=== PATIENT | female | born 1970 | race Caucasian/White ===

== ENCOUNTER 2025-04-25 19:12 | Emergency (ER) | payer MEDICARE, MEDICAID, SELFPAY ==
[2025-04-25 19:37] VITALS: BP 147/100; PULSE 93; RESP 18; TEMP 37; O2SAT 100; BMI 27.9
[2025-04-25 19:47] LABS: Coronavirus 19, PCR Not Detected (NotDetected); Influenza A, PCR Not Detected (NotDetected); Influenza B, PCR Not Detected (NotDetected)
--- NOTE | 2025-04-25 20:14 | XR_ITS ---
PROCEDURE INFORMATION: Exam: XR Chest Exam date and time: 04/25/2025 8:37 PM Age: 54 years old Clinical indication: Shortness of breath and other: Chills; Additional info: SOA, chills TECHNIQUE: Imaging protocol: Radiologic exam of the chest. Views: 1 view. COMPARISON: No relevant prior studies available. FINDINGS: Lungs: Unremarkable. No consolidation. Pleural spaces: Unremarkable. No pleural effusion. No pneumothorax. Heart/Mediastinum: Unremarkable. No cardiomegaly. Bones/joints: Unremarkable. IMPRESSION: No acute findings.
--- NOTE | 2025-04-25 20:16 | ED_ITS ---
Discharge Plan Disposition Patient Disposition: Home, Self-Care Condition: Good Prescriptions Prescriptions: New promethazine 25 mg tablet 25 mg PO TID PRN (Reason: nausea and vomiting) Qty: 14 0RF Referrals Follow up/Referrals: Quan Philip [Primary Care Provider, Medical] - See instructions Activity Restrictions/Add. Instructions Additional Instructions/Restrictions: If you develop shortness of breath, wheezing, production of phlegm, fevers, intractable abdominal pain, or intractable nausea and vomiting please return to the emergency department. Print Language Print Language: Djib[place]ian Discharge ED Provider: Micheal Black General Adult HPI <ESTELA Liu - Last Filed: 04/25/25 22:06> General Chief complaint: Upper Respiratory Infection Stated complaint: Chills; Emesis; Possibly Dehydrated Time Seen by Provider: 04/25/25 20:02 Mode of Arrival: Ambulatory Source of Information: Patient Description of Symptoms (Recalled from ER Triage Doc. by RN): Pt presents for evaluation of multiple complaints. Pt states she has had chills, generalized body aches, congestion x 3 days History of Present Illness HPI narrative: 54-year-old female presents to the emergency department with a 2 to 3-day history of chills, subjective fever, no recorded Tmax, shortness of air, nausea and vomiting poor p.o. intake, malaise and bodyaches, no known sick contact being another person who had COVID . Denies any overt cough congestion sore throat, denies any headache lightheadedness, denies any upper abdominal pain, denies any constipation diarrhea melena hematochezia hematemesis or hemoptysis, no urinary symptomatology, patient is a former smoker, denies any alcohol or drug use, other past medical history is consistent with Chiari malformation, slated to have surgery for this in 10 days, hypertension, status post right mastectomy for breast cancer, status post chemo therapy and radiation therapy, remission, neuropathy. Initial triage vitals are unremarkable. Please note that above description of symptoms, in this electronic medical record under categorization of recalled from ER triage doctor by RN are reflective of an initial nursing assessment, however, is not reflective of my full history and physical exam that was personally taken and clarified. Consequentially, this preceding description of symptoms, which may include the patient's categorized chief complaint in the EMR, do not reflect my personal clinical impression, and the ultimate description of history of present illness and patient stated complaints should be deferred to this section of the note. Unless stated otherwise or congruent with this section of the note, additional signs, symptoms, or incongruence should be interpreted as inaccurate with my clinical impression. Onset (ago): day(s) Related Data Previous Rx's ?Medication ?Instructions ?Recorded promethazine 25 mg tablet 25 mg PO TID PRN nausea and 04/25/25 vomiting #14 tabs Allergies Allergy/AdvReac Type Severity Reaction Status Date / Time tramadol Allergy Severe S-SWELLS-OR Verified 04/25/25 20:19 AL/THROAT amoxicillin Allergy Intermediate I-RASH Verified 04/25/25 20:19 aspirin Allergy Intermediate I-HIVES Verified 04/25/25 20:19 codeine Allergy Intermediate I-ITCHING Verified 04/25/25 20:19 acetaminophen (From ULTRACET) Allergy Unknown Hives Verified 04/25/25 20:19 ondansetron Allergy Hives Verified 04/25/25 20:23 PFSH <ESTELA Liu - Last Filed: 04/25/25 22:06> COUNT INCLUDES THE [facility] Disclaimer: The information contained in this section may have been updated after the patient was seen, as this information can be updated by other users. Social History (Updated 04/25/25 @ 22:06 by ESTELA Liu) Smoking Status: Never smoker alcohol intake: never current occupational status: other Travel in the last 8 weeks?: None Have you lived/traveled outside US in past 30 days?: No Contact w/someone who lives/traveled outside US past 30 days?: No Exposure to someone with infectious disease in past 14 days?: No Do you have a fever (greater than 100.4 F or 38 C)?: No Have you tested positive for COVID-19?: No Exposed to someone with COVID-19 in past 14 days?: No Do you have a sore throat?: No Do you have a cough?: No Do you have any weakness?: No Do you have any diarrhea?: No Are you experiencing any unusual bleeding?: No Do you have any muscle aches/pain?: No Do you have any abdominal pain?: No Are you experiencing loss of taste or smell?: No <ESTELA Liu - Last Filed: 04/25/25 22:06> ROS Obtained: Yes All systems reviewed & no additional complaints except as documented Physical Exam <ESTELA Liu - Last Filed: 04/25/25 22:06> General General appearance: alert and in no apparent distress Head Head exam: atraumatic and normocephalic Eye Eye exam: Present PERRL and EOMI ENT ENT exam: Present normal oropharynx and mucous membranes moist Neck Neck exam: Present normal inspection Chest Chest inspection: Present normal inspection and symmetric chest wall rise Respiratory Respiratory exam: Present normal lung sounds bilaterally; Absent respiratory distress, wheezes or stridor Cardiovascular Cardiovascular exam: Present regular rate and normal rhythm Abdominal Exam Abdominal exam: Present soft; Absent tenderness, guarding, rebound or rigidity Extremities Exam Extremities exam: Present normal inspection Neurological Exam Neurological exam: Present alert and oriented X3 Psychiatric Psychiatric exam: Present normal affect Skin Skin exam: Present warm and dry Medical Decision Making <ESTELA Liu - Last Filed: 04/25/25 22:06> Medical Records Medical records reviewed: Yes I reviewed the patient's medical records. Screening: Per USPSTF and CDC recommendations, given the prevalence of disease in our region, it is our hospital?s policy to screen for HIV and viral Hepatitis for all patients aged 18 and over and those with ongoing risk factors. Farshad Inquiry Pt receiving controlled substance: No Farshad was queried for this patient: No Vital Signs: 04/25/25 19:37 Temperature 98.6 F Temperature Source Temporal Artery Scan Pulse Rate [Right] 93 H Respiratory Rate 18 Blood Pressure [Right Arm] 147/100 H Blood Pressure Mean [Right Arm] 115 Blood Pressure Source [Right Arm] Automatic Cuff Blood Pressure Position [Right Arm] Sitting 02 Sat by Pulse Oximetry 100 Oxygen Delivery Method Room Air Lab Data Lab results reviewed: Yes I reviewed the patient's lab results. Lab Results 04/25/25 19:39: SARS-CoV-2 (PCR) Not detected, Influenza A Untype (PCR) Not detected, Influenza Type B (PCR) Not detected 04/25/25 20:33: WBC 11.4 H, RBC 4.64, Hgb 14.1, Hct 40.2, MCV 86.6, MCH 30.4, MCHC 35.1, RDW 11.9, Plt Count 367, MPV 10.7 H, Neut % (Auto) 67.4, Lymph % (Auto) 23.7, [place] % (Auto) 7.3, Eos % (Auto) 0.7, Baso % (Auto) 0.6, Neut # (Auto) 7.7, Lymph # (Auto) 2.7, [place] # (Auto) 0.8, Eos # (Auto) 0.1, Baso # (Auto) 0.1, Sodium 137, Potassium 3.1 L, Chloride 94 L, Carbon Dioxide 27, Anion Gap 19.1 H, BUN 17, Creatinine 0.90, Estimated Creat Clear 86, Estimated GFR 65, Est GFR ( Amer) 79, Glucose 120 H, Calcium 10.1, Magnesium 2.0, Total Bilirubin 0.9, AST 23, ALT 16, Alkaline Phosphatase 117, Total Creatine Kinase 83, Total Protein 8.2, Albumin 4.9, Globulin 3.3 H, Albumin/Globulin Ratio 1.5 04/25/25 20:33 04/25/25 20:33 Orders (Tests/Meds): ED MEDICATIONS Discontinued Medications Generic Name Dose Route Start Last Admin Trade Name Freq PRN Reason Stop Dose Admin Lactated Ringer's 1,000 mls @ 999 mls/hr 04/25/25 20:14 04/25/25 21:50 Lactated Ringer's 1000 Ml Bag IV 04/25/25 21:14 Infused .Q1H1M ONE Infusion Potassium Chloride 60 meq 04/25/25 20:58 04/25/25 21:02 Potassium Chloride 20meq Tab PO 04/25/25 20:59 60 meq ONCE ONE Administration Promethazine HCl 12.5 mg 04/25/25 20:26 04/25/25 20:38 Promethazine Hcl 25mg/Ml 1ml Vial IV 04/25/25 20:27 12.5 mg ONCE ONE Administration Sodium Chloride 25 ml 04/25/25 20:26 04/25/25 20:54 Sodium Chloride 0.9% 25ml Bag IV 04/25/25 20:27 25 ml ONCE ONE Administration ORDERS Category Date Time Status XR chest portable Stat Exams 04/25/25 20:14 Completed Complete Blood Count Auto Diff Stat Lab 04/25/25 20:33 Completed Comprehensive Metabolic Panel Stat Lab 04/25/25 20:33 Completed Creatine Kinase Stat Lab 04/25/25 20:33 Completed Magnesium Stat Lab 04/25/25 20:33 Completed Rapid PCR Covid and Flu A/B Stat Lab 04/25/25 19:39 Completed Medical Decision Narrative: 54-year-old female presents the emergency department multiple complaints, see HPI for more details, differential diagnose include but not limited to cardiac arrhythmia, electrolyte disturbance, gastroenteritis, colitis, viral bronchitis, pneumonia, acute URI among others Will obtain basic laboratory studies, EKG, lipase, magnesium, rapid PCR COVID and flu, will give 1 L LR IV, and give 12.5 mg IV Phenergan for nausea and vomiting I reviewed the patient's EKG, along with the attending physician at approximately 2024, NSR at 97 bpm TX interval 200 ms, QT interval within normal limits, there is no STEMI. COVID-19 via PCR is negative, influenza via PCR negative CBC notable for mild leukocytosis 11.4 otherwise unremarkable CMP is noted for mild hypokalemia 3.1 will give 60 mill equivalents given p.o. potassium for placement. Patient has otherwise unremarkable CMP. Of note reexamination of the patient at approximately 9:55 PM, was resting comfortably in bed, will attempt p.o. challenge. I discussed this patient's case with the attending physician Dr. Black at shift change he will be assuming the patient's care/workup, disposition is pending radiology report, p.o. challenge and reassessment. <Micheal Black, - Last Filed: 04/25/25 23:15> Vital Signs: 04/25/25 19:37 Temperature 98.6 F Temperature Source Temporal Artery Scan Pulse Rate [Right] 93 H Respiratory Rate 18 Blood Pressure [Right Arm] 147/100 H Blood Pressure Mean [Right Arm] 115 Blood Pressure Source [Right Arm] Automatic Cuff Blood Pressure Position [Right Arm] Sitting 02 Sat by Pulse Oximetry 100 Oxygen Delivery Method Room Air Lab Data Lab Results 04/25/25 19:39: SARS-CoV-2 (PCR) Not detected, Influenza A Untype (PCR) Not detected, Influenza Type B (PCR) Not detected 04/25/25 20:33: WBC 11.4 H, RBC 4.64, Hgb 14.1, Hct 40.2, MCV 86.6, MCH 30.4, MCHC 35.1, RDW 11.9, Plt Count 367, MPV 10.7 H, Neut % (Auto) 67.4, Lymph % (Auto) 23.7, [place] % (Auto) 7.3, Eos % (Auto) 0.7, Baso % (Auto) 0.6, Neut # (Auto) 7.7, Lymph # (Auto) 2.7, [place] # (Auto) 0.8, Eos # (Auto) 0.1, Baso # (Auto) 0.1, Sodium 137, Potassium 3.1 L, Chloride 94 L, Carbon Dioxide 27, Anion Gap 19.1 H, BUN 17, Creatinine 0.90, Estimated Creat Clear 86, Estimated GFR 65, Est GFR ( Amer) 79, Glucose 120 H, Calcium 10.1, Magnesium 2.0, Total Bilirubin 0.9, AST 23, ALT 16, Alkaline Phosphatase 117, Total Creatine Kinase 83, Total Protein 8.2, Albumin 4.9, Globulin 3.3 H, Albumin/Globulin Ratio 1.5 Orders (Tests/Meds): ED MEDICATIONS Discontinued Medications Generic Name Dose Route Start Last Admin Trade Name Freq PRN Reason Stop Dose Admin Lactated Ringer's 1,000 mls @ 999 mls/hr 04/25/25 20:14 04/25/25 21:50 Lactated Ringer's 1000 Ml Bag IV 04/25/25 21:14 Infused .Q1H1M ONE Infusion Potassium Chloride 60 meq 04/25/25 20:58 04/25/25 21:02 Potassium Chloride 20meq Tab PO 04/25/25 20:59 60 meq ONCE ONE Administration Promethazine HCl 12.5 mg 04/25/25 20:26 04/25/25 20:38 Promethazine Hcl 25mg/Ml 1ml Vial IV 04/25/25 20:27 12.5 mg ONCE ONE Administration Sodium Chloride 25 ml 04/25/25 20:26 04/25/25 20:54 Sodium Chloride 0.9% 25ml Bag IV 04/25/25 20:27 25 ml ONCE ONE Administration ORDERS Category Date Time Status XR chest portable Stat Exams 04/25/25 20:14 Completed Complete Blood Count Auto Diff Stat Lab 04/25/25 20:33 Completed Comprehensive Metabolic Panel Stat Lab 04/25/25 20:33 Completed Creatine Kinase Stat Lab 04/25/25 20:33 Completed Magnesium Stat Lab 04/25/25 20:33 Completed Rapid PCR Covid and Flu A/B Stat Lab 10/10/25 19:39 Completed Medical Decision Narrative: 54-year-old female presents the emergency department multiple complaints, see HPI for more details, differential diagnose include but not limited to cardiac arrhythmia, electrolyte disturbance, gastroenteritis, colitis, viral bronchitis, pneumonia, acute URI among others Will obtain basic laboratory studies, EKG, lipase, magnesium, rapid PCR COVID and flu, will give 1 L LR IV, and give 12.5 mg IV Phenergan for nausea and vomiting I reviewed the patient's EKG, along with the attending physician at approximately 2024, NSR at 97 bpm TX interval 200 ms, QT interval within normal limits, there is no STEMI. COVID-19 via PCR is negative, influenza via PCR negative CBC notable for mild leukocytosis 11.4 otherwise unremarkable CMP is noted for mild hypokalemia 3.1 will give 60 mill equivalents given p.o. potassium for placement. Patient has otherwise unremarkable CMP. Of note reexamination of the patient at approximately 9:55 PM, was resting comfortably in bed, will attempt p.o. challenge. I discussed this patient's case with the attending physician Dr. Black at shift change he will be assuming the patient's care/workup, disposition is pending radiology report, p.o. challenge and reassessment. Transfer of care I agree with BEATRIZ assessment and plan above. I have independently evaluated the patient and obtained collateral history from the patient. She tells me that she has had rhinorrhea and congestion for the last couple of days. She states that today she began developing nausea and vomiting. No associated abdominal pain. She has not had any production of phlegm or fevers. She has had somewhat of an intermittent cough. On my physical examination she does not have any wheezes, rales, rhonchi, or crackles. No stridor. Her abdomen is soft and nontender to palpation. Heart sounds are normal to auscultation bilaterally. She has no lower extremity erythema or edema. We proceeded with hematologic labs as well as viral swabs. We also obtained an EKG. Please see interpretation of EKG above. Labs were interpreted by me and demonstrates a leukocytosis of 11.4 which can be seen in the setting of a viral illness. She is also hypokalemic and we replaced this with potassium chloride. No acute kidney injury. Viral swabs are negative. On repeat assessment of the patient after being treated with 1 L of lactated Ringer's and promethazine, she was still experiencing some nausea so we treated her with Pepcid. She has now been able to tolerate oral intake of both solids and liquids. We will send her home with a prescription for Zofran to take for continued nausea at home. I have given return precautions in the event that she develops abdominal pain, tractable nausea and vomiting, signs of dehydration, or fevers. At this time all questions have been answered and all parties are agreeable with the decision to discharge home. Critical Care <ESTELA Liu - Last Filed: 04/25/25 22:06> Critical Care Time Critical Care Time: No
--- NOTE | 2025-04-25 20:25 | ECG_ITS ---
APPROVED REPORT Exam: Resting ECG HR:97 bpm ECG Measurements Heart Rate 97 AXES OR 200 P 69 QRSd 85 QRS 49 QT 340 T 212 QTc 395 Conclusion Sinus rhythm Normal axis Normal intervals No STEMI Probable LVH Electronically signed by : Micheal Black, 04/26/2025 01:33:39
[2025-04-25] MEDS: LACTATED RINGERS 1000ML 1,000 ML 999 ML IV (20:34)
[2025-04-25] MEDS: PROMETHAZINE HCL 25MG/ML 1ML VIAL 12.5 MG IV (20:38)
[2025-04-25 20:41] LABS: Hematocrit 40.2 % (37.0-47.0); Hemoglobin 14.1 g/dL (12.2-16.2); Immature Granulocytes % 0.3 %; Mean Corpuscular HGB Conc 35.1 g/dL (31.8-35.4); Mean Corpuscular Hemoglobin 30.4 pg (27.0-31.2); Mean Corpuscular Volume 86.6 fl (81-99); Nucleated Red Blood Cells % 0 %; Platelet Count 367 K/mm3 (142-424); Red Blood Count 4.64 M/mm3 (4.20-5.40); Red Cell Distribution Width-SD 37.5 fL; White Blood Count 11.4 K/mm3 (4.8-10.8)
[2025-04-25 20:53] LABS: Alanine Aminotransferase 16 U/L (12-78); Albumin Level 4.9 g/dl (3.5-5.0); Albumin/Globulin Ratio 1.5 (1.1-1.8); Alkaline Phosphatase 117 U/L (38-126); Anion Gap 19.1 mEq/L (5-15); Aspartate Amino Transferase 23 U/L (14-36); Bilirubin,Total 0.9 mg/dl (0.2-1.3); Blood Urea Nitrogen 17 mg/dl (7-17); Calcium 10.1 mg/dl (8.4-10.2); Carbon Dioxide 27 mmol/L (22.0-30.0); Chloride 94 mmol/L (98-107); Creatine Kinase 83 U/L (30-135); Creatinine Clearance Estimated 86 mL/min (50-200); Creatinine,Serum 0.90 mg/dl (0.52-1.04); Estimated Glomerular Filt Rate 65 ml/min (>60); GFR (African American) 79 ML/MIN (>60); Globulin 3.3 g/dL (1.3-3.2); Glucose 120 mg/dl (74-100); Magnesium 2.0 mg/dl (1.6-2.3); Potassium 3.1 mmoL/L (3.5-5.1); Sodium 137 mmol/L (136-145); Total Protein,Serum 8.2 g/dl (6.3-8.2)
[2025-04-25] MEDS: SODIUM CHLORIDE 0.9% 25ML BAG 25 ML IV (20:54)
[2025-04-25] MEDS: POTASSIUM CHLORIDE 20MEQ TAB 60 MEQ PO (21:02)
[2025-04-25 23:19] VITALS: BP 138/78; PULSE 71; RESP 19; TEMP 36.6; O2SAT 96
[2025-04-25] MEDS: FAMOTIDINE 20MG/2ML VIAL 20 MG IV (23:21)
== END 2025-04-25 23:28 | disposition home or self-care (01) ==
PROVIDERS: Physician Assistant; Emergency Provider Student in an Organized Health Care Education/Training Program; PCP Family Medicine
DX: R11.2 Nausea with vomiting, unspecified (principal); E87.6 Hypokalemia
CPT/HCPCS: 71045; 80053; 82550; 83735; 85025; 87636; 93005; 96361; 96374; 96375; 99284; J1308; J2550; J7120

== ENCOUNTER 2025-07-03 09:32 | Emergency (ER) | payer MEDICARE, MEDICAID, SELFPAY ==
--- OUTSIDE RECORDS SUMMARY | 2025-02-27 08:30 | XMS_ITS ---
Author Organization [facility] Address [address] [place] [address] Care Team Providers Care Public Relations Intern Name Role Phone Quan Philip DO Primary Care Provider Unavaila jorge Barbosa MRS. Del Castillo Unavailable Encounters Encounter Location Date Provider Diagnosis [facility] [address] [place] [address] 02/27/2025 Magdalene Barbosa Plan Of Treatment Next Appt Details Provider Name:Cornell avendano, 07/07/2025 11:45:00 AM, [address], [place], [address], Progress Notes * Axel PATELOB:1970 (55 yo F)Acc No.[id number]:02/27/2025 Patient: Ifeoma Pepper Provider: Mulugeta Barbosa NP :1970 A ge:54 Y S ex:Female Date:02/27/2025 Phone: Address:[facility] Pcp:Quan Philip DO Structured Data:Referral Rachelle rce : Physician * Electronic signature of MRS. Del Castillo PAMELA Barbosa on 07/03/2025 at 10:11 AM EST Sign off status: Pending * Provider: Mulugeta Barbosa NP Date: 0 02/27/2025 Generated for Manny ng/Kaig/eTransmitting on: 1 09/03/2024 10:11 AM EST
--- OUTSIDE RECORDS SUMMARY | 2025-03-08 04:00 | XMS_ITS ---
Author Organization [facility] Address [address] [place] [address] [address] [place] [address] Care Team Providers Care Wax Pattern Repairer Name Role Phone Tamera Quan Primary Care Provider Unavaila ble Migration, Provider Unavailable Unavailable REASON FOR VISIT EMR-Luis A Encounters Encounter Location Date Provider Diagnosis [facility] [address] [facility] [address] [place] [address] 03/08/2025 Provider Migration Plan Of Treatment Next Appt Details Provider Name:Cornell avendano, 07/07/2025 11:45:00 AM, [address] [place], [address], Progress Notes * Axel PATELOB:1970 (55 yo F)Acc No.[id number]:03/08/2025 Patient: Darren Ifeoma FLOYD :1970 A ge:54 Y S ex:Female Phone: Address:[facility] [place], [address] Subjective: * Chief Complaints: * E MR-Luis A * * Date:
--- OUTSIDE RECORDS SUMMARY | 2025-03-09 04:00 | XMS_ITS ---
Author Organization [facility] Address [address] [place] [address] [address] [place] [address] Care Team Providers Care Kindergarten Assistant Name Role Phone Tamera Quan Primary Care Provider Unavaila ble Migration, Provider Unavailable Unavailable REASON FOR VISIT EMR-Luis A Encounters Encounter Location Date Provider Diagnosis [facility] [address] [facility] [address] [place] [address] 03/09/2025 Provider Migration Plan Of Treatment Next Appt Details Provider Name:Cornell avendano, 07/07/2025 11:45:00 AM, [address] [place], [address], Progress Notes * Axel PATELOB:1970 (55 yo F)Acc No.[id number]:03/09/2025 Patient: Darren KAYLASINTIAIfeoma :1970 A ge:54 Y S ex:Female Phone: Address:[facility] [place], [address] Subjective: * Chief Complaints: * E MR-Luis A * * Date:
--- OUTSIDE RECORDS SUMMARY | 2025-04-02 04:00 | XMS_ITS ---
Author Organization [facility] Office Address [address] [place] [address] Care Team Providers Care Transportation Dispatch Manager Name Role Phone Tamera Quan BOYKIN Primary Care Provider [facility] PROVIDERANGELINA Unavailable Unavailable REASON FOR VISIT SURGERY CONSENTED Medications Medication SIG (Take, Route, Frequency, Duration) Notes Start Date End Date Status Azithromycin 250 MG Tablet Oral; Duratio n: 5 Days Not-Taking Azithromycin 250 MG Tablet TAKE 1 TABLET BY MOUTH DAILY FOR 5 DAYS. Oral; Duration: 5 Days Not-Taking Doxycycline Monohydrate 100 MG Capsule TAKE 1 CAPSULE BY MOUTH 2 TIMES DAILY FOR 10 DAYS. Oral; Duration: 10 Days Not-Taking Doxycycline Monohydrate 100 MG Capsule Oral; Duration: 10 Days Not-Taking Gabapentin 300 MG Capsule TAKE 2 CAPSULE S BY MOUTH THREE TIMES DAILY Oral; Duration: 30 Days Not-Taking Lisinopril-hydroCHLOROthiazi de 20-25 MG Tablet Oral; Duration: 90 Days Active Metoprolol Succinate ER 100 MG Tablet Extended Release 24 Hour TAKE 1 TABLET BY MOUTH DAILY. MUST MAKE APPOINTMENT FOR FURTHER REFILLS Oral; Duration: 90 Days Active Omeprazole 40 MG Capsule Delayed Release TAKE 1 CAPSULE BY MOUTH 2 TIMES DAILY. Oral; Duration: 90 Days Active oxyCODONE-Acetaminophen 7.5-325 MG Tablet TAKE 1 TABLET BY MOUTH EVERY 6 HOURS NEEDED FOR CHRONIC PAIN (G89.29). * DNF UNTIL 03-13-25 Oral; Duration: 30 Days Active oxyCODONE-Acetaminophen 7.5-325 MG Tablet Oral; Duration: 30 Days Active Gabapentin 300 MG Capsule Oral; Duration : 30 Days Not-Taking Ibuprofen 800 MG Tablet Oral; Duration: 30 Days Active Ibuprofen 800 MG Tablet TAKE 1 TABLET BY MOUTH EVERY 8 HOURS NEEDED FOR PAIN Oral; Duration: 30 Days Not-Taking Lidocaine 5 % Patch PLACE 1 PATCH ONTO THE SKIN EVERY 12 HOURS, THEN REMOVE FOR 12 HOURS External; Duration: 30 Days Not-Taking Lidocaine 5 % Patch External; Duration: 30 Days Active methylPREDNISolone 4 MG Tablet Therapy Pack TAKE 6 TABLETS ON DAY 1,THEN 5 TABS ON DAY 2,THEN 4 TABS ON DAY 3, 3 TABS ON DAY 4,THEN 2 TABS ON DAY 5 AND 1 TAB ON DAY 6. *TAKE WITH FOOD* Oral; Duration: 6 Days Not-Taking traZODone HCl 50 MG Tablet Oral; Duratio n: 30 Days Active traZODone HCl 50 MG Tablet TAKE 1 TABLET BY MOUTH NIGHTLY. Oral; Duration: 30 Days Active Gabapentin 300 MG Capsule TAKE 2 CAPSULE S BY MOUTH 3 TIMES DAILY. DNF UNTIL 03/22/25 Oral; Duration: 30 Days Active methylPREDNISolone 4 MG Tablet Therapy Pack Oral; Duration: 6 Days Not-Taking Encounters Encounter Location Date Provider Diagnosis [facility] [address] 04/02/2025 [place] PROVIDER Plan Of Treatment Next Appt Details Provider Name:Cornell avendano, 07/07/2025 11:45:00 AM, [address] [place], [address], Progress Notes * Axel PATELOB:1970 (55 yo F)Acc No.[id number]:04/02/2025 Patient: Darren alcantar Ifeoma Provider: Letty CARR PACS INTERFACE :1970 A ge:54 Y S ex:Female Date:04/02/2025 Phone: Address:[address] [place] [id number] Pcp:Quan Philip DO Structured Data:Referral Rachelle rce : Physician Subjective: * Chief Complaints: * S URGERY CONSENTED * Medications: T akingtraZODone HCl 50 MG Tablet Oral traZODone HCl 50 MG Tablet TAKE 1 TABLET BY MOUTH NIGHTLY. Oral Gabapentin 300 MG Capsule TAKE 2 CAPSULES BY MOUTH 3 TIMES DAILY. DNF UNTIL 03/22/25 Oral Ibuprofen 800 MG Tablet Oral Lidocaine 5 % Patch External oxyCODONE-Acetaminophen 7.5-325 MG Tablet TAKE 1 TABLET BY MOUTH EVERY 6 HOURS NEEDED FOR CHRONIC PAIN (G89.29). * DNF UNTIL 03-13-25 Oral oxyCODONE-Acetaminophen 7.5-325 MG Tablet Oral Lisinopril-hydroCHLOROthiazide 20-25 MG Tablet Oral Metoprolol Succinate ER 100 MG Tablet Extended Release 24 Hour TAKE 1 TABLET BY MOUTH DAILY. MUST MAKE APPOINTMENT FOR FURTHER REFILLS Oral Omeprazole 40 MG Capsule Delayed Release TAKE 1 CAPSULE BY MOUTH 2 TIMES DAILY. Oral Taking traZODone HCl 50 MG Tablet Oral Taking traZODone HCl 50 MG Tablet TAKE 1 TABLET BY MOUTH NIGHTLY. Oral Taking Gabapentin 300 MG Capsule TAKE 2 CAPSULES BY MOUTH 3 TIMES DAILY. DNF UNTIL 03/22/25 Oral Taking Ibuprofen 800 MG Tablet Oral Taking Lidocaine 5 % Patch External Taking oxyCODONE-Acetaminophen 7.5-325 MG Tablet TAKE 1 TABLET BY MOUTH EVERY 6 HOURS NEEDED FOR CHRONIC PAIN (G89.29). * DNF UNTIL 03-13-25 Oral Taking oxyCODONE-Acetaminophen 7.5-325 MG Tablet Oral Taking Lisinopril-hydroCHLOROthiazide 20-25 MG Tablet Oral Taking Metoprolol Succinate ER 100 MG Tablet Extended Release 24 Hour TAKE 1 TABLET BY MOUTH DAILY. MUST MAKE APPOINTMENT FOR FURTHER REFILLS Oral Taking Omeprazole 40 MG Capsule Delayed Release TAKE 1 CAPSULE BY MOUTH 2 TIMES DAILY. Oral Not-TakingmethylPREDNISolone 4 MG Tablet Therapy Pack Oral methylPREDNISolone 4 MG Tablet Therapy Pack TAKE 6 TABLETS ON DAY 1,THEN 5 TABS ON DAY 2,THEN 4 TABS ON DAY 3, 3 TABS ON DAY 4,THEN 2 TABS ON DAY 5 AND 1 TAB ON DAY 6. *TAKE WITH FOOD* Oral Gabapentin 300 MG Capsule Oral Ibuprofen 800 MG Tablet TAKE 1 TABLET BY MOUTH EVERY 8 HOURS NEEDED FOR PAIN Oral Lidocaine 5 % Patch PLACE 1 PATCH ONTO THE SKIN EVERY 12 HOURS, THEN REMOVE FOR 12 HOURS External Azithromycin 250 MG Tablet Oral Azithromycin 250 MG Tablet TAKE 1 TABLET BY MOUTH DAILY FOR 5 DAYS. Oral Doxycycline Monohydrate 100 MG Capsule TAKE 1 CAPSULE BY MOUTH 2 TIMES DAILY FOR 10 DAYS. Oral Doxycycline Monohydrate 100 MG Capsule Oral Gabapentin 300 MG Capsule TAKE 2 CAPSULES BY MOUTH THREE TIMES DAILY Oral Not-Taking methylPREDNISolone 4 MG Tablet Therapy Pack Oral Not-Taking methylPREDNISolone 4 MG Tablet Therapy Pack TAKE 6 TABLETS ON DAY 1,THEN 5 TABS ON DAY 2,THEN 4 TABS ON DAY 3, 3 TABS ON DAY 4,THEN 2 TABS ON DAY 5 AND 1 TAB ON DAY 6. *TAKE WITH FOOD* Oral Not-Taking Gabapentin 300 MG Capsule Oral Not-Taking Ibuprofen 800 MG Tablet TAKE 1 TABLET BY MOUTH EVERY 8 HOURS NEEDED FOR PAIN Oral Not- Taking Lidocaine 5 % Patch PLACE 1 PATCH ONTO THE SKIN EVERY 12 HOURS, THEN REMOVE FOR 12 HOURS External Not-Taking Azithromycin 250 MG Tablet Oral Not-Taking Azithromycin 250 MG Tablet TAKE 1 TABLET BY MOUTH DAILY FOR 5 DAYS. Oral Not-Taking Doxycycline Monohydrate 100 MG Capsule TAKE 1 CAPSULE BY MOUTH 2 TIMES DAILY FOR 10 DAYS. Oral Not-Taking Doxycycline Monohydrate 100 MG Capsule Oral Not-Taking Gabapentin 300 MG Capsule TAKE 2 CAPSULES BY MOUTH THREE TIMES DAILY Oral Plan: * Treatment: Forms: * Dynamic Forms * Surgical WorksheetSurgery Description Chiari Decompression Diagnosis 1:Chiari Malformation Providers Surgeon:Emely CPT Codes CPT 1:708443 CPT 2:761191 CPT 3:150633 CPT Comments:04/09 codes added/av Facility/Scheduling Info Date of Surgery:05/06/2025 Length of Surgery:3.5 Hour Arrival Time:08:30 AM Surgery Time:10:00 AM Facility/Admit Status:Hospital - surgery admit Facility:[facility] Not Selected Reason:Physician performs case as inpatient Booked by:Dee Booked Date:04/02/2025 Clinical Prep Anesthesia:General H&P:No Medical Clearance:YesPhysician: Cardiac Clearance:NoPhysician: Other Clearance:NoPhysician: Insurance Primary: [employer] Hmo Referral Group: [id number] Secondary: Insurance ID: Group: * Authorization notes and details are found in the related outgoing referral. * Insurance Verified:Yes Verification Completed by:Fabricio Verification Date:04/09/2025 Per [employer] - active [employer] HMO DED $257 has bee met OOP $ 9350 has met $ 1543.95 0% coins * Electronic signature of JOSÉ MIGUEL GERMAN PROVIDER on 07/03/2025 at 10:09 AM EST Sign off status: Pending * Provider: Letty CARR PACS INTERFACE Date: 0 04/02/2025 Generated for Manny monge/Portillo/eTransmitting on: 1 09/03/2024 10:09 AM EST
--- OUTSIDE RECORDS SUMMARY | 2025-05-06 05:00 | XMS_ITS ---
Author Organization [facility] Office Address [address] [place] [id number] Care Team Providers Care Brim Raiser Name Role Phone Quan Philip DO Primary Care Provider Unavaila Cornell Thompson Unavailable [phone] REASON FOR VISIT SURGERY Medications Medication SIG (Take, Route, Frequency, Duration) Notes Start Date End Date Status Azithromycin 250 MG Tablet TAKE 1 TABLET [...] TIMES DAILY Oral; Duration: 30 Days Not-Taking Valium 5 MG Tablet 1 tablet as needed Orally Once a day; Duration: 1 days 04/03/2025 Active Azithromycin 250 MG Tablet Oral; Duratio n: 5 Days Not-Taking oxyCODONE-Acetaminophen 7.5-325 MG Tablet Oral; Duration: 30 Days Active Lisinopril-hydroCHLOROthiazi de 20-25 MG Tablet Oral; Duration: 90 Days Active Metoprolol Succinate ER 100 MG Tablet Extended Release 24 Hour TAKE 1 TABLET BY MOUTH DAILY. MUST MAKE APPOINTMENT FOR FURTHER REFILLS Oral; Duration: 90 Days Active Omeprazole 40 MG Capsule Delayed Release TAKE 1 CAPSULE BY MOUTH 2 TIMES DAILY. Oral; Duration: 90 Days Active Ibuprofen 800 MG Tablet Oral; Duration: 30 Days Active Ibuprofen 800 MG Tablet TAKE 1 TABLET BY MOUTH EVERY 8 HOURS NEEDED FOR PAIN Oral; Duration: 30 Days Not-Taking Lidocaine 5 % Patch PLACE 1 PATCH ONTO THE SKIN EVERY 12 HOURS, THEN REMOVE FOR 12 HOURS External; Duration: 30 Days Not-Taking Lidocaine 5 % Patch External; Duration: 30 Days Active oxyCODONE-Acetaminophen 7.5-325 MG Tablet TAKE 1 TABLET BY MOUTH EVERY 6 HOURS NEEDED FOR CHRONIC PAIN (G89.29). * DNF UNTIL 03-13-25 Oral; Duration: 30 Days Active Gabapentin 300 MG Capsule TAKE 2 CAPSULE S BY MOUTH 3 TIMES DAILY. DNF UNTIL 03/22/25 Oral; Duration: 30 Days Active Gabapentin 300 MG Capsule Oral; Duration : 30 Days Not-Taking methylPREDNISolone 4 MG Tablet Therapy Pack [...] MOUTH NIGHTLY. Oral; Duration: 30 Days Active methylPREDNISolone 4 MG Tablet Therapy Pack Oral; Duration: 6 Days Not-Taking Encounters Encounter Location Date Provider Diagnosis [address] [id number] 05/06/2025 Cornell Han Postoperative visit Z48.89 Assessments Encounter Date Diagnosis (ICD Code) Assessment Notes Treatment Notes Treatment Clinical Notes Section Notes 05/06/2025 Postoperative visit (ICD-10 - Z48.89) Ms. Ifeoma Patel is a pleasant 54 yo female that presents today for first post op visit following Chiari Decompression with Dr. Han on 05/06/2025. She tolerated surgical intervention well and was discharged home with family on 05/10/25. Plan Of Treatment Next Appt Details Provider Name:Cornell avendano, 07/07/2025 11:45:00 AM, [address] [place], [address], Progress Notes * Axel PATELOB:1970 (55 yo F)Acc No.[id number]:05/06/2025 Patient: Ifeoma Pepper Provider: Jeffrey Han MD :1970 A ge:54 Y S ex:Female Date:05/06/2025 Phone: Address:[address] [place] [address], [phone] Pcp:Quan hPilip DO Structured Data:Referral Rachelle rce : Physician Subjective: * Chief Complaints: * S URGERY * Medications: T akingtraZODone HCl 50 MG [...] CAPSULE BY MOUTH 2 TIMES DAILY. Oral Valium 5 MG Tablet 1 tablet as needed Orally Once a day Taking traZODone HCl 50 MG Tablet Oral [...] Taking oxyCODONE-Acetaminophen 7.5-325 MG Tablet Oral Taking Lisinopril- hydroCHLOROthiazide 20-25 MG Tablet Oral Taking Metoprolol Succinate ER 100 MG Tablet Extended Release 24 Hour TAKE 1 TABLET BY MOUTH DAILY. MUST MAKE APPOINTMENT FOR FURTHER REFILLS Oral Taking Omeprazole 40 MG Capsule Delayed Release TAKE 1 CAPSULE BY MOUTH 2 TIMES DAILY. Oral Taking Valium 5 MG Tablet 1 tablet as needed Orally Once a day Not-TakingmethylPREDNISolone 4 MG Tablet Therapy Pack Oral [...] EVERY 8 HOURS NEEDED FOR PAIN Oral Not-Taking Lidocaine 5 % Patch PLACE 1 [...] CAPSULES BY MOUTH THREE TIMES DAILY Oral Assessment: * Assessment: 1. P ostoperative visit - Z48.89 (Primary) Ms. [facility] 54 [facility] that presents today for first post op visit following Chiari Decompression with Dr. Han on 05/06/2025. She tolerated surgical intervention well and was discharged home with family on 05/10/25. Billing Information: * Procedure Codes: * Electronic signature of Soren Han MD on 07/03/2025 at 10:11 AM EST Sign off status: Pending * Provider: Jeffrey Han MD Date: Generated for Manny monge/Portillo/Rashid on: 09/03/2024 10:11 AM EST
--- OUTSIDE RECORDS SUMMARY | 2025-05-20 06:15 | XMS_ITS ---
Author Organization [facility] Office Address [address] [place] [id number] Care Team Providers Care Cardiovascular Tech Name Role Phone Quan Philip DO Primary Care Provider Unavaildee dee MRS. Magdalene Tolbert Unavailable REASON FOR VISIT POSTOP Crani Medications Medication SIG (Take, Route, Frequency, Duration) Notes Start Date End Date Status Valium 5 MG Tablet 1 tablet as needed Orally Once a day; Duration: 1 days 04/03/2025 Active Doxycycline Monohydrate 100 MG Capsule Oral; Duration: 10 Days Not-Taking Gabapentin 300 MG Capsule TAKE 2 CAPSULE S BY MOUTH THREE TIMES DAILY Oral; Duration: 30 Days Not-Taking Azithromycin 250 MG Tablet TAKE 1 TABLET BY MOUTH DAILY FOR 5 DAYS. Oral; Duration: 5 Days Not-Taking Doxycycline Monohydrate 100 MG Capsule TAKE 1 CAPSULE BY MOUTH 2 TIMES DAILY FOR 10 DAYS. Oral; Duration: 10 Days Not-Taking Metoprolol Succinate ER 100 MG Tablet Extended Release 24 Hour TAKE 1 TABLET BY MOUTH DAILY. MUST MAKE APPOINTMENT FOR FURTHER REFILLS Oral; Duration: 90 Days Active oxyCODONE-Acetaminophen 7.5-325 MG Tablet Oral; Duration: 30 Days Active Lisinopril-hydroCHLOROthiazi de 20-25 MG Tablet Oral; Duration: 90 Days Active Omeprazole 40 MG Capsule Delayed Release TAKE 1 CAPSULE BY MOUTH 2 TIMES DAILY. Oral; Duration: 90 Days Active Azithromycin 250 MG Tablet Oral; Duratio n: 5 Days Not-Taking Lidocaine 5 % Patch External; Duration: 30 Days Active oxyCODONE-Acetaminophen 7.5-325 MG Tablet TAKE 1 TABLET BY MOUTH EVERY 6 HOURS NEEDED FOR CHRONIC PAIN (G89.29). * DNF UNTIL 03-13-25 Oral; Duration: 30 Days Active Ibuprofen 800 MG Tablet TAKE 1 TABLET BY MOUTH EVERY 8 HOURS NEEDED FOR PAIN Oral; Duration: 30 Days Not-Taking Lidocaine 5 % Patch PLACE 1 PATCH ONTO THE SKIN EVERY 12 HOURS, THEN REMOVE FOR 12 HOURS External; Duration: 30 Days Not-Taking Ibuprofen 800 MG Tablet Oral; Duration: 30 Days Active traZODone HCl 50 MG Tablet Oral; Duratio n: 30 Days Active methylPREDNISolone 4 MG Tablet Therapy Pack TAKE 6 TABLETS ON DAY 1,THEN 5 TABS ON DAY 2,THEN 4 TABS ON DAY 3, 3 TABS ON DAY 4,THEN 2 TABS ON DAY 5 AND 1 TAB ON DAY 6. *TAKE WITH FOOD* Oral; Duration: 6 Days Not-Taking Gabapentin 300 MG Capsule Oral; Duration : 30 Days Not-Taking traZODone HCl 50 MG Tablet TAKE 1 TABLET BY MOUTH NIGHTLY. Oral; Duration: 30 Days Active Gabapentin 300 MG Capsule TAKE 2 CAPSULE S BY MOUTH 3 TIMES DAILY. DNF UNTIL 03/22/25 Oral; Duration: 30 Days Active methylPREDNISolone 4 MG Tablet Therapy Pack Oral; Duration: 6 Days Not-Taking Social History Social History Household: Social Info Question Answer Notes Household Level of education: High school diploma o r GED Are you living with other adults in your househo ld? Yes Is this person able to help at home if surgery is needed? Yes Drug/Alcohol: Social Info Question Answer Notes Alcohol consumption What is your alcohol consumption? None Recreational drugs Do you currently use recreational drugs? 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 Yes What is your smoking status? Former What nicotine products do / did you use? cigarettes / cigars How much do / did you smoke per day? (amount equivalent in packs) 0 How many years have / had you used nicotine products? 0 Vital Signs Height 65 in 05/20/2025 Weight 162 lbs 05/20/2025 BMI 26.96 kg/m2 05/20/2025 Height-cm 165.1 cm 05/20/2025 Weight-kg 73.48 kg 05/20/2025 Encounters Encounter Location Date Provider Diagnosis [facility] [address] [place] [address] 05/20/2025 Magdalene Barbosa Postoperative visit Z48.89 Assessments Encounter Date Diagnosis (ICD Code) Assessment Notes Treatment Notes Treatment Clinical Notes Section Notes 05/20/2025 Postoperative visit (ICD-10 - Z48.89) Ms. Mariya Flores is a pleasant 54 yo female that presents today for first post op visit following chiari decompression with Dr. Han on 05/05. She did well postoperatively and was discharged home with family on the . Since that time, she continues to report intermittent headaches and recently a feeling of off balance when she is walking. She is not taking her muscle relaxers twice daily, and is back on her chronic pain medication. Her incision seems to be healing without any signs of concern. Prineo was removed today and incision appears to be healing well with no redness drainage or swelling. She has had some itching of the left eyelid for which her primary care provider prescribed hydrocortisone. She was wondering if this has anything to do with her surgery, and although I do not believe so, I will update Dr. Han to determine. She will follow-up with Dr. Han in 4 weeks, sooner if any problems arise. Plan Of Treatment Next Appt Details Follow Up: 4 Weeks, Reason: Provider Name:Cornell Oswald romana, 07/07/2025 11:45:00 AM, [address] [place], [address], History and Physical Notes * HPI (History of Present Illness) Category Sub-Category Detail Notes Category Not es Questionnaires VAS Pain Scale On a scale of 0 to 10, with 0=no pain and 10=worst imaginable pain, what is your average daily pain level?: 4 moderate Daily Function Describe your daily level of function:: 2. Independent / Limited to light duty work or light activity Post-Op Update What is your activit y level since surgery?: Improved but not back to full How are your symptoms since surgery?: Im proved / Better Progress Notes * Axel FLORESOB:1970 (54 yo F)Acc No.[id number]:05/20/2025 Patient: Mariya Pepper Provider: Mulugeta Barbosa NP :1970 A ge:54 Y S ex:Female Date:05/20/2025 Phone: Address:[address] [place], [place] [id number] Pcp:Quan Philip DO Structured Data:Referral Rachelle rce : Physician Subjective: * Chief Complaints: * P OSTOP Crani * HPI: Q uestionnaires: Daily Function D escribe your daily level of function: 2 . Independent / Limited to light duty work or light activity. V Pain Scale O n a scale of 0 to 10, with 0=no pain and 10=worst imaginable pain, what is your average daily pain level? 4 moderate. P ost-Op Update W hat is your activity level since surgery? I mproved but not back to full, H ow are your symptoms since surgery? I mproved / Better. * Screening: * PROMIS 10: D ocumented By: Orly Zuniga core: 58 P ROMIS 10 Q1. In general, would you say your health is:3. GoodQ2. In general, would you say our quality of life is:3. GoodQ3. In general, how would you rate your physical health?3. GoodQ4. In general, how would you rate your mental health, including your mood and your ability to think?4. Very GoodQ5. In general, how would you rate your satisfaction with your social activities and relationships?3. GoodQ9. In general, please rate how well you carry out your usual social activities and roles. (This includes activities at home, at work and in your community, and responsibilities as a parent, child, spouse, employee, friend, etc.)3. GoodQ6. To what extent are you able to carry out your everyday physical activities such as walking, climbing stairs, carrying groceries, or moving a chair?2. A OvdyiwV77. How often have you been bothered by emotional problems such as feeling anxious, depressed, or irritable?4. RarelyQ8. How would you rate your fatigue on average?4. MildQ7. On a scale of 0 to 10, how would you rate your pain on average? 0 = No pain, 10 = Worst pain imaginable3 * Medical History: Past Medical History: Cancer,High blood pressure * Surgical History: mariya flores 2012 * Social History: T obacco Use: N icotine Use / Smoking D o, or have you ever, used tobacco or nicotine? Y es, W hat is your smoking status? F ormer, W hat nicotine products do / did you use? c igarettes / cigars, H ow much do / did you smoke per day? (amount equivalent in packs) 0 , H ow many years have / had you used nicotine products? 0 . D rug/Alcohol: R ecreational drugs D o you currently use recreational drugs? (_select all that apply)?None. A lcohol consumption W hat is your alcohol consumption? N one. H ousehold: H ousehold L evel of education: H igh school diploma or GED, A re you living with other adults in your household? Y es, I s this person able to help at home if surgery is needed? Y es. * Medications: T akingtraZODone HCl 50 MG [...] CAPSULES BY MOUTH THREE TIMES DAILY Oral Objective: * Vitals: H t: 65 in, Ht-cm: 165.1 cm, Wt:162lbs, Wt-k.48 kg, BMI:26.96Index, Body Surface Area: 1.83. Assessment: * Assessment: 1. P ostoperative visit - Z48.89 (Primary) Ms. Mariya Flores is a pleasa nt 54 yo female that presents today for first post op visit following chiari decompression with Dr. Han on 05/05. She did well postoperatively and was discharged home with family on the . Since that time, she continues to report intermittent headaches and recently a feeling of off balance when she is walking. She is not taking her muscle relaxers twice daily, and is back on her chronic pain medication. Her incision seems to be healing without any signs of concern. Prineo was removed today and incision appears to be healing well with no redness drainage or swelling. She has had some itching of the left eyelid for which her primary care provider prescribed hydrocortisone. She was wondering if this has anything to do with her surgery, and although I do not believe so, I will update Dr. Han to determine. She will follow-up with Dr. Han in 4 weeks, sooner if any problems arise. Plan: * Follow Up: 4 Weeks Billing Information: * Visit Code: [id number] Post op. * Procedure Codes: * Sign off status: Completed true * Provider: Mulugeta Barbosa NP Date: 07/20/2024 Generated for Manny monge/Portillo/Rashid on: 09/03/2024 10:10 AM EST
--- OUTSIDE RECORDS SUMMARY | 2025-06-05 08:52 | XMS_ITS ---
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 C hiari I malformation - G93.5 Plan: * Treatment: * true * Date: Generated for Printi ng/Faxing/eTransmitting on: 1 09/03/2024 10:10 AM EST
--- OUTSIDE RECORDS SUMMARY | 2025-06-19 05:30 | XMS_ITS ---
Author Organization [facility] Office Address [address] [place] [phone] Care Team Providers Care Equity Director Name Role Phone Quan Philip DO Primary Care Provider Unavaila Cornell Thompson Unavailable [phone] REASON FOR VISIT POSTOP Crani Encounters Encounter Location Date Provider Diagnosis [facility] [address] [place] [address] 2025 Cornell Han Plan Of Treatment Next Appt Details Provider Name:Cornell avendano, 07/07/2025 11:45:00 AM, [address], [place], [address], Progress Notes * Axel PENALOZAOB:1970 (55 yo F)Acc No.[id number]:2025 Patient: Ifeoma Pepper Provider: Jeffrey Han MD :1970 A ge:55 Y S ex:Female Date:2025 Phone: [facility] Pcp:Quan Philip DO Structured Data:Referral Rachelle rce : Physician Subjective: * Chief Complaints: * P OSTOP Crani Billing Information: * Procedure Codes: * Electronic signature of Soren Han MD on 07/03/2025 at 10:10 AM EST Sign off status: Pending * Provider: Jeffrey Han MD Date: 08/20/2024 Generated for Printi ng/Faxing/eTransmitting on: 09/03/2024 10:10 AM EST
[2025-07-03] VITALS (9 sets, daily range): BP systolic 165–250; BP diastolic 82–168; PULSE 73–131; RESP 13–21; TEMP 36.7–36.8; O2SAT 96–100; BMI 27.4
--- NOTE | 2025-07-03 09:54 | HMH.EDGENADL ---
Discharge Plan Disposition Chief Complaint: PAIN Prescriptions Prescriptions: No Action promethazine 25 mg tablet 25 mg PO TID PRN (Reason: nausea and vomiting) Qty: 14 0RF Referrals Follow up/Referrals: Quan Philip [Primary Care Provider, Medical] - See instructions Print Language Print Language: Irish Discharge ED Provider: Soni Morelos General Adult HPI General Chief complaint: PAIN Stated complaint: pain and swelling L side of face/jaw Time Seen by Provider: 07/03/25 09:41 Mode of Arrival: Ambulatory Source of Information: Patient Description of Symptoms (Recalled from ER Triage Doc. by RN): pt is here for facial swelling that started last night, pt has no teeth and has been on doxy for the last 2-3 days for a URI. pt swelling is to the left side and complains of ear pain as well History of Present Illness HPI narrative: Patient is a 55-year-old with past medical history significant for coronary artery disease on aspirin and Plavix Lipitor, hypertension on amlodipine metoprolol and clonidine and Chiari malformation presents to the emergency department with left facial and ear pain. Denies chest pain shortness of breath. Reports she took her metoprolol this morning and has been compliant with all medications. Denies vision changes eye pain. Was started on doxycycline 2 days ago for sinusitis. Notes sinus pressure with congestion and rhinorrhea. Denies any sore throat. Pain with opening her mouth and into her left ear. Denies tinnitus Related Data Previous Rx's ?Medication ?Instructions ?Recorded promethazine 25 mg tablet 25 mg PO TID PRN nausea and 04/25/25 vomiting #14 tabs Allergies Allergy/AdvReac Type Severity Reaction Status Date / Time tramadol Allergy Severe S-SWELLS-OR Verified 04/25/25 20:19 AL/THROAT amoxicillin Allergy Intermediate I-RASH Verified 04/25/25 20:19 aspirin Allergy Intermediate I-HIVES Verified 04/25/25 20:19 codeine Allergy Intermediate I-ITCHING Verified 04/25/25 20:19 acetaminophen (From ULTRACET) Allergy Unknown Hives Verified 04/25/25 20:19 ondansetron Allergy Hives Verified 04/25/25 20:23 [facility] Disclaimer: The information contained in this section may have been updated after the patient was seen, as this information can be updated by other users. Social History (Updated 04/25/25 @ 22:06 by ESTELA Liu) Smoking Status: Current every day smoker alcohol intake: never current occupational status: other Travel in the last 8 weeks?: None Have you lived/traveled outside US in past 30 days?: No Contact w/someone who lives/traveled outside US past 30 days?: No Exposure to someone with infectious disease in past 14 days?: No Do you have a fever (greater than 100.4 F or 38 C)?: No Have you tested positive for COVID-19?: No Exposed to someone with COVID-19 in past 14 days?: No Do you have a sore throat?: No Do you have a cough?: No Do you have any weakness?: No Do you have any diarrhea?: No Are you experiencing any unusual bleeding?: No Do you have any muscle aches/pain?: No Do you have any abdominal pain?: No Are you experiencing loss of taste or smell?: No ROS Obtained: Yes All systems reviewed & no additional complaints except as documented Physical Exam General General appearance: alert and in no apparent distress Head Head exam: atraumatic and normocephalic Eye Eye exam: Present PERRL and EOMI; Absent conjunctival redness or periorbital swelling ENT ENT exam: Present normal oropharynx, mucous membranes moist, TM's normal bilaterally (erythema of left TM without bulging, intact light reflex, no swelling of the pinna, ) and other (tenderness to maxillary sinuses bilaterally ) Neck Neck exam: Present full ROM, trachea midline and other (no neck swelling); Absent lymphadenopathy Respiratory Respiratory exam: Present normal lung sounds bilaterally; Absent respiratory distress Cardiovascular Cardiovascular exam: Present tachycardia Abdominal Exam Abdominal exam: Present soft; Absent tenderness Neurological Exam Neurological exam: Present alert and oriented X3; Absent motor sensory deficit Skin Skin exam: Present warm and dry Lymphatic Lymphatic Findings: no adenopathy Medical Decision Making Medical Records Screening: Per USPSTF and CDC recommendations, given the prevalence of disease in our region, it is our hospital?s policy to screen for HIV and viral Hepatitis for all patients aged 18 and over and those with ongoing risk factors. Farshad Inquiry Pt receiving controlled substance: Yes Farshad was queried for this patient: No Risks and benefits of using a controlled substance: were discussed with pt by me Vital Signs: 07/03/25 09:36 07/03/25 09:44 07/03/25 10:24 Temperature 98.1 F Temperature Source Oral Pulse Rate 130 H 131 H Pulse Rate [Left Radial] 130 H Respiratory Rate 20 17 Blood Pressure 241/133 H 230/166 H Blood Pressure [Right Arm] 241/133 H Blood Pressure Mean [Right Arm] 169 02 Sat by Pulse Oximetry 99 96 99 Oxygen Delivery Method Room Air Room Air Room Air 07/03/25 10:30 07/03/25 11:17 Temperature Temperature Source Pulse Rate 113 H 100 H Pulse Rate [Left Radial] Respiratory Rate 15 15 Blood Pressure 250/168 H 228/137 H Blood Pressure [Right Arm] Blood Pressure Mean [Right Arm] 02 Sat by Pulse Oximetry 99 99 Oxygen Delivery Method Room Air Room Air Lab Data Lab Results 07/03/25 10:21: WBC 9.3, RBC 4.57, Hgb 13.7, Hct 40.4, MCV 88.4, MCH 30.0, MCHC 33.9, RDW 12.0, Plt Count 355, MPV 10.6 H, Neut % (Auto) 77.0, Lymph % (Auto) 17.0, [place] % (Auto) 4.7, Eos % (Auto) 0.4, Baso % (Auto) 0.5, Neut # (Auto) 7.1, Lymph # (Auto) 1.6, [place] # (Auto) 0.4, Eos # (Auto) 0.0, Baso # (Auto) 0.1, Sodium 138, Potassium 3.5, Chloride 103, Carbon Dioxide 24, Anion Gap 14.5, BUN 10, Creatinine 0.80, Estimated Creat Clear 94, Estimated GFR 74, Est GFR ( Amer) 90, Glucose 124 H, Calcium 9.8, Total Bilirubin 0.7, AST 27, ALT 15, Alkaline Phosphatase 108, Troponin I < 0.01, Total Protein 8.8 H, Albumin 5.2 H, Globulin 3.6 H, Albumin/Globulin Ratio 1.4 07/03/25 10:21 07/03/25 10:21 Orders (Tests/Meds): ED MEDICATIONS Discontinued Medications Generic Name Dose Route Start Last Admin Trade Name Freq PRN Reason Stop Dose Admin Amlodipine Besylate 10 mg 07/03/25 10:33 07/03/25 10:35 Amlodipine 5mg Tablet PO 07/03/25 10:34 10 mg ONCE ONE Administration Clonidine HCl 0.2 mg 07/03/25 10:45 07/03/25 10:35 Clonidine 0.1mg Tablet PO 07/03/25 10:46 0.2 mg ONCE ONE Administration Hydromorphone HCl 0.5 mg 07/03/25 10:36 07/03/25 11:26 Hydromorphone 2mg/Ml Syringe IV 07/03/25 10:37 0.5 mg ONCE ONE Administration Lactated Ringer's 1,000 mls @ 999 mls/hr 07/03/25 10:03 07/03/25 10:25 Lactated Ringer's 1000 Ml Bag IV 07/03/25 11:03 999 mls/hr .Q1H1M ONE Administration Iopamidol 75 ml 07/03/25 11:06 07/03/25 11:07 Iopamidol-370 (76%);100ml Bottle IV 07/03/25 11:07 75 ml ONCE ONE Administration Metoprolol Tartrate 5 mg 07/03/25 10:36 07/03/25 11:25 Metoprolol Tartrate 5mg/5ml Vial IV 07/03/25 10:37 5 mg ONCE ONE Administration Metoprolol Tartrate 5 mg 07/03/25 11:28 07/03/25 11:36 Metoprolol Tartrate 5mg/5ml Vial IV 07/03/25 11:29 Not Given ONCE ONE Oxycodone HCl 5 mg 07/03/25 10:29 07/03/25 10:35 Oxycodone 5mg Immediate Release Tablet PO 07/03/25 10:30 5 mg ONCE ONE Administration Sodium Chloride 10 ml 07/03/25 11:06 07/03/25 11:07 Sodium Chloride 0.9% 10ml Syr (Rad Only) IV 07/03/25 11:07 10 ml ONCE ONE Administration ORDERS Category Date Time Status CT head/brain wo con Stat Cat Scan 07/03/25 10:[address] sinus w con Stat Cat Scan 07/03/25 10:[address] soft tissue neck w con Stat Cat Scan 07/03/25 10:03 Taken Complete Blood Count Auto Diff Stat Lab 07/03/25 10:21 Completed Comprehensive Metabolic Panel Stat Lab 07/03/25 10:21 Completed Rapid PCR Covid and Flu A/B Stat Lab 07/03/25 12:00 Received Trop I [Troponin I] Stat Lab 07/03/25 10:21 Completed Troponin I Q3H Lab 07/03/25 13:30 Ordered Troponin I Q3H Lab 07/03/25 16:30 Ordered Blood Culture Stat Micro 07/03/25 12:00 Received Medical Decision Narrative: In summary, this 55-year-old female presents to the emergency department today with left facial pain. On initial evaluation patient is tachycardic hypertensive saturating on room air afebrile. Differential diagnosis includes but is not limited to bacterial or viral sinusitis otitis media osteomyelitis ACS post operative complication. Based on these concerns, I ordered CBC CMP troponin EKG CT head CT soft tissue neck and sinuses. ECG personally interpreted demonstrates sinus tachycardia no ST elevation ST depression or T wave inversions concerning for ischemia Patient received amlodipine clonidine oxycodone for treatment. [facility] records personally interpreted and significant for past medical history significant for breast cancer degenerative disc disease hypertension dissection of the left subclavian artery treated conservatively with recommendations from vascular surgery at [facility] for close blood pressure control. Of note patient has been hospitalized multiple times from April 2025 at [facility] for hypertensive emergency. With recent exposures to hospital with increased Pseudomonas risk factors and patient has had no improvement of symptoms for her maxillary sinusitis over the last 48 hours compliant with doxycycline will change antibiotics to Levaquin as she has allergy to amoxicillin. On repeat evaluation after home amlodipine and clonidine and 2 doses of IV metoprolol patient's blood pressure improved to systolic of 160s. Patient symptoms are most consistent with maxillary sinusitis and denies any chest pain shortness of breath or headaches to suggest concern for hypertensive emergency at this time. Labs personally reviewed demonstrate no leukocytosis CT imaging personally interpreted demonstrate no hydrocephalus cervical lymphadenopathy left maxillary sinusitis. Will give referral to outpatient ENT for sinusitis. On reassessment patient has significant improvement in symptoms agreeable to discharge outpatient follow-up with ENT. Admission considered and blood pressure improved in the emergency department with administration of home antihypertensives that she missed this morning and 2 doses of IV metoprolol. Strict return precautions in place. Of note, social determinants of health include poor health literacy Critical Care Critical Care Time Critical Care Time: Yes Attestation: On 07/03/25, the high probability of a clinically significant, sudden or life threatening deterioration of the following system(s) required my full and direct attention, intervention and personal management. The time I documented below is in addition to time spent performing reported procedures but includes the following listed in this critical care notation. Total Time Total Critical Care Time: 32
--- NOTE | 2025-07-03 10:03 | CT_ITS ---
FINAL REPORT TECHNIQUE: Thin section axial CT images with coronal reformats were obtained through the neck after the administration of IV contrast. This study was performed with techniques to keep radiation doses as low as reasonably achievable (ALARA). Individualized dose reduction techniques using automated exposure control or adjustment of mA and/or kV according to the patient''s size were employed. CLINICAL HISTORY: left facial and neck swelling COMPARISON: None FINDINGS: The nasopharynx is unremarkable. Motion artifact limits evaluation of the oropharynx and epiglottis. There is no gross enlargement of the epiglottis. The larynx is grossly unremarkable. The right thyroid gland is very small. The left thyroid gland is unremarkable. The salivary glands are unremarkable. There are mildly prominent upper cervical lymph nodes favored to be reactive. Limited evaluation of the lung apices is without acute abnormality. There are no acute osseous abnormalities. IMPRESSION: Exam limited by motion artifact. No gross acute abnormality noted. Mildly prominent upper cervical lymph nodes favored to be reactive. For findings of the paranasal sinuses, please refer to CT scan of the face. Reviewed, Interpreted and Dictated by Collette Ventura MD Transcribed by Madeline Petersen Authenticated and [facility]
--- NOTE | 2025-07-03 10:03 | CT_ITS ---
FINAL REPORT TECHNIQUE: Thin section axial images were obtained from skull base to vertex without contrast. Coronal reconstruction images were obtained from the axial data. Exam was performed using dose reduction techniques such as automated exposure control, adjustment of the mA and kV according to patient size, and use of iterative reconstruction technique. CLINICAL HISTORY: GRIFFIN hx chiari malformation COMPARISON: None FINDINGS: There is no mass effect or midline shift. There is no hydrocephalus. There is no intracranial hemorrhage. There is a single nonspecific focus of hypodensity within the right frontal cortex. Postoperative changes from occipital decompression are noted. There is no acute abnormality in the posterior fossa. Mucosal thickening within the left maxillary sinus is noted. No acute osseous abnormality is identified. IMPRESSION: No acute intracranial abnormality. Reviewed, Interpreted and Dictated by Collette Ventura MD Transcribed by Madeline Petersen Authenticated and [facility]
--- NOTE | 2025-07-03 10:03 | CT_ITS ---
FINAL REPORT CLINICAL HISTORY: left facial swelling COMPARISON: None FINDINGS: CT SINUSES TECHNIQUE: Thin section axial CT with coronal and sagittal reconstructions were obtained after the administration of IV contrast. This study was performed with techniques to keep radiation doses as low as reasonably achievable, (ALARA). Individualized dose reduction techniques using automated exposure control or adjustment of mA and/or kV according to the patient's size were employed. There is mucoperiosteal thickening of the left maxillary sinus. Remaining paranasal sinuses are clear. The left maxillary infundibulum appears occluded by mucoperiosteal thickening. No significant nasal septal deviation is noted. The mastoid air cells are clear. Left periorbital soft tissue edema is noted. Retro-orbital soft tissues and fat are unremarkable. No fluid collection seen. Mildly prominent upper cervical lymph nodes bilaterally, [id number], are favored to be reactive. IMPRESSION: Left maxillary sinusitis, likely chronic with occlusion of the left maxillary infundibulum. Left periorbital soft tissue edema with no retro-orbital extension. Reviewed, Interpreted and Dictated by Collette Ventura MD Transcribed by Madeline Petersen Authenticated and [facility]
--- OUTSIDE RECORDS SUMMARY | 2025-07-03 10:08 | XMS_ITS | Clinical Summary ---
Author Organization [facility] are Address [address] [place] [address] Phone Care Team Providers Care Vp Of Technology Name Role Phone Unavailable Unavailable Conditions or Problems No information available. Medications No information available. Medications Administered No information available. Allergies, Adverse Reactions, Alerts No information available. Results No information available. Plan of Care No information available. Procedures No information available. Vital Signs No information available. Immunizations No information available. Advance Directives No information available.
--- OUTSIDE RECORDS SUMMARY | 2025-07-03 10:09 | XMS_ITS | Clinical Summary ---
Author Organization [facility] Address [address] [place] [id number] Phone Care Team Providers Care Barking Machine Feeder Name Role Phone Magdalene Banerjee Unavailable [phone] Conditions or Problems No information available. Medications No information available. Medications Administered No information available. Allergies, Adverse Reactions, Alerts No information available. Results No information available. Plan of Care No information available. Procedures No information available. Vital Signs No information available. Immunizations No information available. Advance Directives No information available.
--- OUTSIDE RECORDS SUMMARY | 2025-07-03 10:10 | XMS_ITS | Patient Health Record ---
Author Organization [facility] Address [address] [place] [address] Care Team Providers Care Wheel Installer Name Role Phone Quan Philip DO Primary Care Provider Unavaila Litzy Giraldo Unavailable [phone] MRS. Magdalene Barbosa Unavailable MRS. Bernadette Maurice Unavailable EmelyCornell Unavailable [phone] Migration, Provider Unavailable Unavailable PROVIDER, [employer] Unavailable Unavailable Results Component Value Reference Range Flag Notes MR Brain w/o Contrast Reviewed date:05/25/2025 09:46:24 AM Interpretation: Performing Lab: Notes/Report: [facility] GLU[facility] Reviewed date:05/07/2025 12:12:08 PM Interpretation: Performing Lab:Dimitris BUENROSTRO, Director - ID Notes/Report: Anyi Hendrickson Glucose [Mass/volume] in Blo od by Automated test strip 170 70-100 mg/dL H Specimen type Capillary Service comment 73 Non-Critical Patient POC Arterial Blood Gas Nora mcgovern Reviewed date:05/07/2025 12:12:08 PM Interpretation: Performing Lab:Dimitris BUENROSTRO, Director - ID Notes/Report: Anyi Hendrickson pH of Arterial blood 7.41 7.35-7.45 pH Carbon dioxide [Partial pres sure] in Arterial blood 44 35-45 mmHg Oxygen [Partial pressure] in Arterial blood 65 80-100 mmHg L Bicarbonate [Moles/volume] i n Arterial blood 26.4 22.0-26.0 mmol/L H Base excess in Arterial bloo d by calculation 2.7 -2.0-3.0 mmol/L Oxygen saturation Calculated from oxygen partial pressure in Arterial blood 94.3 95.0-98.0 % L Sodium [Moles/volume] in Blood 138 136-145 mmol/L Calcium.ionized [Moles/volum e] in Venous blood 1.20 1.12-1.32 mmol/L Chloride [Moles/volume] in Blood 100 98-107 mmol/L Glucose [Mass/volume] in Blood 153 72-112 mg/dL H Lactate [Moles/volume] in Blood 1.2 0.5-1.9 mmol/L Potassium [Moles/volume] in Blood 3.9 3.5-5.0 mmol/ L Hemoglobin [Mass/volume] in Blood 11.2 11.2-15.7 g/d L Hematocrit [Volume Fraction] of Blood by Automated count 34.3 34.0-45.0 % Inhaled oxygen concentration 21.0 Caitlin index in Arterial blood 310 GLUCOSE METER POC Reviewed date:05/07/2025 12:12:08 PM Interpretation: Performing Lab:[facility], Dimitris BRAVO, Director - ID Notes/Report: Anyi Hendrickson Glucose [Mass/volume] in Blo od by Automated test strip 179 70-100 mg/dL H Specimen type Capillary Service comment 73 Non-Critical Patient CT HEAD WO CONTRAST Reviewed date:05/25/2025 09:46:24 AM Interpretation: Performing Lab: Notes/Report: [id number] CT HEAD WO CONTRAST Reviewed date:05/07/2025 12:12:08 PM Interpretation: Performing Lab: Notes/Report: CLINICAL HISTORY: -chiari 1. COMPARISON: Yesterday. TECHNIQUE: CT HEAD WO CONTRAST on 05/07/2025 4:58 AM. Dose 1 : CT DLP Total : 916.32 mGycm DLP Spiral Max : 911.45 mGycm Maximum CTDI Vol : 54.2 mGy FINDINGS: Postoperative changes are again noted from a suboccipital craniectomy. Pneumocephalus has slightly decreased. Gas and fluid are noted in the operative region. There is no acute hemorrhage or infarction. The caliber of the ventricular system is stable. IMPRESSION: Postoperative changes as described Note: Radiology results need to be interpreted within a comprehensive clinical context. If you have questions about the radiology report, please contact the office of the ordering clinician. Anyi Hendrickson CT HEAD WO CONTRAST Reviewed date:05/25/2025 09:46:24 AM Interpretation: Performing Lab: Notes/Report: [id number] [email or web address] GLUCOSE METER POC Reviewed date:05/25/2025 09:46:24 AM Interpretation: Performing Lab:Dimitris BUENROSTRO, Director - ID Notes/Report: Anyi Hendrickson Glucose [Mass/volume] in Blo od by Automated test strip 134 70-100 mg/dL H Specimen type Capillary Service comment 73 Non-Critical Patient MR BRAIN W/O CONTRAST Reviewed date:05/25/2025 09:46:24 AM Interpretation: Performing Lab: Notes/Report: [id number] [email or web address] GLUCOSE METER POC Reviewed date:05/25/2025 09:46:23 AM Interpretation: Performing Lab:Dimitris BUENROSTRO, Director - ID Notes/Report: Anyi Hendrickson Glucose [Mass/volume] in Blo od by Automated test strip 110 70-100 mg/dL H Specimen type Capillary Service comment 73 Non-Critical Patient GLUCOSE METER POC Reviewed date:05/25/2025 09:46:23 AM Interpretation: Performing Lab:Dimitris BUENROSTRO, Director - ID Notes/Report: Anyi Q Glucose [Mass/volume] in Blo od by Automated test strip 112 70-100 mg/dL H Specimen type Capillary Service comment 73 Non-Critical Patient GLUCOSE METER POC Reviewed date:05/25/2025 09:46:24 AM Interpretation: Performing Lab:Dimitris BUENROSTRO, Director - ID Notes/Report: Anyi Hendrickson Glucose [Mass/volume] in Blo od by Automated test strip 100 70-100 mg/dL Specimen type Capillary Service comment 73 Non-Critical Patient GLUCOSE METER POC Reviewed date:05/25/2025 09:46:24 AM Interpretation: Performing Lab:Dimitris BUENROSTRO, Director - ID Notes/Report: Coventry-DR Q Glucose [Mass/volume] in Blo od by Automated test strip 95 70-100 mg/dL Specimen type Capillary Service comment 73 Non-Critical Patient GLUCOSE METER POC Reviewed date:05/07/2025 12:12:08 PM Interpretation: Performing Lab:Dimitris BUENROSTRO, Director - ID Notes/Report: [employer]-DR Q Glucose [Mass/volume] in Blo od by Automated test strip 103 70-100 mg/dL H Specimen type Capillary Service comment 73 Non-Critical Patient MRI BRAIN WO CONTRAST Reviewed date:05/25/2025 09:46:24 AM Interpretation: Performing Lab: Notes/Report: [id number] [email or web address] MRI CERVICAL SPINE W WO CONT RAST Reviewed date:05/25/2025 09:46:24 AM Interpretation: Performing Lab: Notes/Report: [id number] [email or web address] GLUCOSE METER POC Reviewed date:05/25/2025 09:46:24 AM Interpretation: Performing Lab:Dimitris BUENROSTRO, Director - ID Notes/Report: [employer]-DR Q Glucose [Mass/volume] in Blo od by Automated test strip 93 70-100 mg/dL Specimen type Capillary Service comment 73 Non-Critical Patient GLUCOSE METER POC Reviewed date:05/25/2025 09:46:24 AM Interpretation: Performing Lab:Dimitris BUENROSTRO, Director - ID Notes/Report: [employer]-DR Q Glucose [Mass/volume] in Blo od by Automated test strip 124 70-100 mg/dL H Specimen type Capillary Service comment 73 Non-Critical Patient GLUCOSE METER POC Reviewed date:05/25/2025 09:46:24 AM Interpretation: Performing Lab:Dimitris BUENROSTRO, Director - ID Notes/Report: [employer]-DR Q Glucose [Mass/volume] in Blo od by Automated test strip 120 70-100 mg/dL H Specimen type Capillary Service comment 73 Non-Critical Patient GLUCOSE METER POC Reviewed date:05/25/2025 09:46:24 AM Interpretation: Performing Lab:Dimitris BUENROSTRO, Director - ID Notes/Report: Coventrromana-DR Q Glucose [Mass/volume] in Blo od by Automated test strip 142 70-100 mg/dL H Specimen type Capillary Service comment 73 Non-Critical Patient GLUCOSE METER POC Reviewed date:05/07/2025 12:12:08 PM Interpretation: Performing Lab:Dimitris BUENROSTRO, Director - ID Notes/Report: [employer]-DR Q Glucose [Mass/volume] in Blo od by Automated test strip 82 70-100 mg/dL Specimen type Capillary Service comment 73 Non-Critical Patient GLUCOSE METER POC Reviewed date:05/07/2025 12:12:08 PM Interpretation: Performing Lab:[facility], Director - ID Notes/Report: [employer]-DR Q Glucose [Mass/volume] in Blo od by Automated test strip 182 70-100 mg/dL H Specimen type Capillary Service comment 73 Non-Critical Patient Reason [place] [address] Auth # [id number] valid 04-08 to 06-07-25 Diagnosis 1 Chiari I malformatio n (G93.5) Referral Organization [facility] Referring Provider First Name Cornell Referring Provider Last Name Emely Referring Provider Speciality Neurosurge owen [facility] Referred Provider Specialty Diagnostic R adiology General Notes Gladys Constantino 11:22:22 AM EDT >Submitted online, Jaylen auth # [id number] valid 04-08 to 06-07-25, faxed to [facility] for scheduling Referral Priority Routine Reason 04/09 PENDING Certifi cation [id number] (DOS 05/06) Certification [id number] IN TOTALEffective [id number] Diagnosis 1 Chiari I malformatio n (G93.5) Referral Organization [facility] Referring Provider First Name Cornell Referring Provider Last Name Emely Referring Provider Speciality Neurosurge ry [facility] Referred Address [address],[place], [place],[address], Referred Provider Specialty Neurosurgery Procedure 1 INCISE SKULL (PRESS RELIEF) (25091) Procedure 2 MICROSURGERY ADD-ON (22320) Procedure 3 SCAN PROC CRANIAL IN TRA (32278) Referral Priority Routine Referral Appointment Date 05/06/[address] Head without cont rast Diagnosis 1 Chiari I malformatio n (G93.5) Referral Organization [facility] Referring Provider First Name Cornell Referring Provider Last Name Emely Referring Provider Speciality Neurosurge [facility] Provider [facility] Referred Provider Specialty Diagnostic R adiology General Notes ViraGladys 10:53:07 AM EST >NO PA REQ, scheduled 06-16-25 @ [facility] Referral Priority Routine Medications Medication SIG (Take, Route, Frequency, Duration) Notes Start Date End Date Status traZODone HCl 50 MG Tablet Oral; Duratio n: 30 Days Active methylPREDNISolone 4 MG Tablet Therapy Pack Oral; Duration: 6 Days Not-Taking oxyCODONE-Acetaminophen 7.5-325 MG Tablet Oral; Duration: 30 Days Active methylPREDNISolone 4 MG Tablet Therapy Pack TAKE 6 TABLETS ON DAY 1,THEN 5 TABS ON DAY 2,THEN 4 TABS ON DAY 3, 3 TABS ON DAY 4,THEN 2 TABS ON DAY 5 AND 1 TAB ON DAY 6. *TAKE WITH FOOD* Oral; Duration: 6 Days Not-Taking Lisinopril-hydroCHLOROthiazi de 20-25 MG Tablet Oral; Duration: 90 Days Active Lidocaine 5 % Patch External; Duration: 30 Days Active Valium 5 MG Tablet 1 tablet as needed Orally Once a day; Duration: 1 days 04/03/2025 Active oxyCODONE-Acetaminophen 7.5-325 MG Tablet TAKE 1 TABLET BY MOUTH EVERY 6 HOURS NEEDED FOR CHRONIC PAIN (G89.29). * DNF UNTIL 03-13-25 Oral; Duration: 30 Days Active Ibuprofen 800 MG Tablet TAKE 1 TABLET BY MOUTH EVERY 8 HOURS NEEDED FOR PAIN Oral; Duration: 30 Days Not-Taking Doxycycline Monohydrate 100 MG Capsule Oral; Duration: 10 Days Not-Taking Lidocaine 5 % Patch PLACE 1 PATCH ONTO THE SKIN EVERY 12 HOURS, THEN REMOVE FOR 12 HOURS External; Duration: 30 Days Not-Taking Gabapentin 300 MG Capsule TAKE 2 CAPSULE S BY MOUTH THREE TIMES DAILY Oral; Duration: 30 Days Not-Taking Gabapentin 300 MG Capsule Oral; Duration : 30 Days Not-Taking Azithromycin 250 MG Tablet TAKE 1 TABLET BY MOUTH DAILY FOR 5 DAYS. Oral; Duration: 5 Days Not-Taking Ibuprofen 800 MG Tablet Oral; Duration: 30 Days Active Doxycycline Monohydrate 100 MG Capsule TAKE 1 CAPSULE BY MOUTH 2 TIMES DAILY FOR 10 DAYS. Oral; Duration: 10 Days Not-Taking traZODone HCl 50 MG Tablet TAKE 1 TABLET BY MOUTH NIGHTLY. Oral; Duration: 30 Days Active Omeprazole 40 MG Capsule Delayed Release TAKE 1 CAPSULE BY MOUTH 2 TIMES DAILY. Oral; Duration: 90 Days Active Gabapentin 300 MG Capsule TAKE 2 CAPSULE S BY MOUTH 3 TIMES DAILY. DNF UNTIL 03/22/25 Oral; Duration: 30 Days Active Azithromycin 250 MG Tablet Oral; Duratio n: 5 Days Not-Taking Metoprolol Succinate ER 100 MG Tablet Extended Release 24 Hour TAKE 1 TABLET BY MOUTH DAILY. MUST MAKE APPOINTMENT FOR FURTHER REFILLS Oral; Duration: 90 Days Active Social History Social History Household: Social Info Question Answer Notes Household Level of education: High school diploma o r GED Are you living with other adults in your househo ? Yes Is this person able to help at home if surgery is needed? Yes Drug/Alcohol: Social Info Question Answer Notes Alcohol consumption What is your alcohol consumption? None Recreational drugs Do you currently use recreational drugs? (_select all that apply) None Tobacco Use: Social Info Question Answer Notes Nicotine Use / Smoking Do, or have you ever, used toba claims account specialist or nicotine? Yes What is your smoking status? Former What nicotine products do / did you use? cigarettes / cigars How much do / did you smoke per day? (amount equivalent in packs) 0 How many years have / had you used nicotine products? 0 Problems Problem Type SNOMED Code ICD Code Onset Dates Problem Status W/U Status Risk Notes Problem Compression of brain (00782940) Chiari I malformation (G93.5) Active confirmed Vital Signs Height-cm 165.1 cm 05/20/2025 Weight-kg 73.48 kg 05/20/2025 Height 65 in 05/20/2025 Weight 162 lbs 05/20/2025 BMI 26.96 kg/m2 05/20/2025 Encounters Encounter Location Date Provider Diagnosis [facility] [address] [facility] [address] [place] [phone] 04/02/2025 WALNUT SHADE PROVIDER IP [address] [address] 05/06/2025 Cornell Han Postoperative visit Z48.89 [facility] [address] [place] [address] 04/02/2025 Cornell Han Chiari I malformatio n G93.5 [facility] [address] [place] [address] 05/20/2025 Magdalene Barbosa Postoperative visit Z48.89 [facility] [address] [facility] [address] [place] [address] 03/08/2025 Provider Migration [facility] [address] [facility] [address] [place] [address] 03/09/2025 Provider Migration [facility] [address] [place] [address] 04/03/2025 Cornell Han [facility] [address] [place] [address] 05/20/2025 Cornell Han [facility] [address] [place] [address] 06/05/2025 Cornell Han Chiari I malformatio n G93.5 [facility] [address] [place] [address] 06/09/2025 Cornell Han Assessments Encounter Date Diagnosis (ICD Code) Assessment Notes Treatment Notes Treatment Clinical Notes Section Notes 04/02/2025 Chiari I malformation (ICD-10 - G93.5) 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 I provided Mariya and her sister with information regarding Chiari malformation and Chiari surgery. We will check a Cine of the foramen magnum and we also discussed Chiari decompression. She has no evidence of hypermobility. The risks of the surgery were discussed with the patient to include but are not inclusive of bleeding, infection, stroke, , paralysis, aphasia, receptive and or expressive, coordination problems, difficulty telling right from left, counting, difficulty identifying her digits, blindness, blind spots, recurrence or residual flow restriction, failure to make a diagnosis, need for additional surgery, adjuvant therapy, spinal fluid leak, seizures, comatose state and . The patient understands these risks and complications. Plan Chiari decompression. 05/06/2025 Postoperative visit (ICD-10 - Z48.89) Ms. Mariya Flores is a pleasant 54 yo female that presents today for first post op visit following Chiari Decompression with Dr. Han on 05/06/2025. She tolerated surgical intervention well and was discharged home with family on 05/10/25. 05/20/2025 Postoperative visit (ICD-10 - Z48.89) Ms. [...] 4 weeks, sooner if any problems arise. 06/05/2025 Chiari I malformation (ICD-10 - G93.5) Plan Of Treatment Future Test Test Name Order Date BRAIN CINE WO 04/02/2025 Next Appt Details Provider Name:Cornell avendano, 07/07/2025 11:45:00 AM, [address] [place], [address], Insurance Providers Payer Name Payer Address Payer Phone Subscriber Number Group Number Insured Name Patient Relationship to Insured Coverage Start Date Coverage End Date [employer] o Referral [address] [address] [place] [address] [phone] [id number] Mariya Flores Self - patient is the insured 9 Medical (General) History Medical History History ICD Code Past Medical History: Cancer,High blood pressure Surgical History Surgery Date(Month/Year) mariya flores 2012
--- OUTSIDE RECORDS SUMMARY | 2025-07-03 10:10 | XMS_ITS | Clinical Summary ---
[facility] Address [address] [place] [address] Care Team Providers Care Care Nurse Rn Name Role Phone Unavailable Primary Care Provider Unavailabl e Social History Tobacco Use Types Packs/Day Years Used Date Smoking Tobacco: Never Assessed Abuse Screen Answer Date Recorded Unsafe at Home or Work/School Not on file Feels Threatened by Someone? Not on file 05/2023 Does Anyone Keep You from Co ntacting Others or Doint Things Outside the Home? Not on file 04/26/2023 Physical Sign of Abuse Present Not on file 1 Housing Stability Answer Date Recorded Current Living Arrangements Not on file 04/16 Potentially Unsafe Housing Conditions Not on david e 04/26/2023 Family and Community Support Answer Rufus e Recorded Help with Day-to-Day Activities Not on file 04/26/2023 Lonely or Isolated Not on file 04/26/2023 Employment Answer Date Recorded Do you want help finding or keeping work or a dima b? Not on file 04/26/2023 Disabilities Answer Date Recorded Concentrating, Remembering, or Making Decisions Difficulty Not on file 04/26/2023 Doing Errands Independently Difficulty Not on fi le 04/26/2023 Education Answer Date Recorded Help with school or training? Not on file Preferred Language Not on file 04/26/2023 Comments Unknown Sex and Gender Information Value Date Recorded Sex Assigned at Not on file Legal Sex Female 11:53 AM EDT Gender Identity Not on file Sexual Orientation Not on file Last Filed Vital Signs Vital Sign Reading Time Taken Comments Blood Pressure 166/87 12/05/2012 2:40 PM EDT Pulse - - Temperature - - Respiratory Rate - - Oxygen Saturation - - Inhaled Oxygen Concentration - - Weight 86.2 kg (189 lb 15.9 oz) 12/05/2012 2:40 PM EDT Height 167.6 cm (5' 6 ) 12/05/2012 2:40 PM EDT Body Mass Index 30.67 12/05/2012 2:40 PM EDT Plan of Treatment Health Maintenance Due Date Last Done Comments ANNUAL PHYSICAL 1970 Annual Gynecologic Pelvic and Breast Exam 1970 HEPATITIS C SCREENING 1970 TDAP/TD VACCINES (1 - Tdap) 1989 MAMMOGRAM 2010 COLOGUARD 2015 COLON CANCER SCREENING 5 YEAR SIGMOIDOSCOPY 2015 COLONOSCOPY 2015 [address]AL CANCER SCREENING 2015 CT COLONOGRAPHY 2015 FECAL OCCULT BLOOD TEST 2015 FIT Testing (1 year) 2015 Pneumococcal Vaccine 50+ (1 of 1 - PCV) 2020 ZOSTER VACCINE (1 of 2) 2020 INFLUENZA VACCINE 02/14/2025
--- OUTSIDE RECORDS SUMMARY | 2025-07-03 10:11 | XMS_ITS | Clinical Summary ---
Author Organization Healthcare Address [address] [place] [address] Care Team Providers Care Pill Machine Operator Name Role Phone Ronnie Salmeron MD Primary Care Provider + [phone] Family History Medical History Relation Name Comments Heart attack Father Hypertension Mother Relation Name Status Comments Father Mother Social History Tobacco Use Types Packs/Day Years Used Date Smoking Tobacco: Never Comments Unknown Sex and Gender Information Value Date Recorded Sex Assigned at Not on file Legal Sex Female 8:39 PM EDT Gender Identity Not on file Sexual Orientation Not on file Last Filed Vital Signs Vital Sign Reading Time Taken Comments Blood Pressure - - Pulse - - Temperature - - Respiratory Rate - - Oxygen Saturation - - Inhaled Oxygen Concentration - - Weight 83.5 kg (183 lb 15.9 oz) 05/09/2016 2:46 PM EDT Height 165.1 cm (5' 5 ) 05/09/2016 2:46 PM EDT Body Mass Index 30.62 05/09/2016 2:46 PM EDT Plan of Treatment Not on file Care Teams Pill Machine Operator Relationship Specialty Start Date End Date Ronnie Salmeron MD [address] [place] [address] PCP - General 11/27/20
--- OUTSIDE RECORDS SUMMARY | 2025-07-03 10:11 | XMS_ITS | Clinical Summary ---
Author Organization [facility] Address [address] [place] [address] Care Team Providers Care Pyridine Operator Name Role Phone None, None Primary Care Provider Christy Matta MD Unavailable [phone] Allergies Active Allergy Reactions Criticality Noted Date Comments Amoxicillin Itching,Rash 03/29/2013 Aspirin Rash 07/04/2013 Codeine Itching,Rash Low 03/29/2013 Pt reports she does ok with percocet and vicodin Tramadol Swelling 08/25/2014 Tramadol-Acetaminophen Swelling High 03/29/2013 Tongue and throat swelling Venlafaxine 08/25/2014 N/V Medications meclizine (ANTIVERT) 25 mg PO tablet Take 1 Tab by mouth 3 times daily as needed for Dizziness or Nausea. 60 Tab 0 3 Active Hydrocodone-Willis taminophen (NORCO) 5-325 mg per tabletIndicatio ns:Hypothyroid, HLD (hyperlipidemia ) Take 1 Tab by mouth 2 times daily. 4 Active gabapentin (NEURONTIN) 600 mg tabletIndicatio ns:Neck pain Take 1 Tab by mouth 4 times daily. 120 Tab 3 4 Active omeprazole (PRILOSEC) 20 mg capsuleIndicati ons:GERD (gastroesophage al reflux disease) Take 1 Cap by mouth daily. 30 Cap 5 4 Active triamterene-hyd rochlorothiazid e (MAXZIDE-25) 37.5-25 mg per tabletIndicatio ns:HTN (hypertension) Take 0.5 Tabs by mouth daily. 30 Tab 5 4 Active metoprolol tartrate (LOPRESSOR) 25 mg tabletIndicatio ns:HTN (hypertension) Take 1 Tab by mouth 2 times daily. 60 Tab 3 5 Active gabapentin (NEURONTIN) 600 mg tablet Take 1 Tab by mouth 4 times daily. 120 Tab 3 5 Active ibuprofen (MOTRIN) 800 mg tablet TAKE 1 TABLET BY MOUTH 3 TIMES DAILY NEEDED. 60 Tab 3 5 Active lovastatin (MEVACOR) 20 mg tablet Take 1 Tab by mouth daily. 30 Tab 3 5 Active diazepam (VALIUM) 10 mg tablet TAKE 1 TABLET BY MOUTH AT BEDTIME NEEDED 30 Tab 0 5 Active Active Problems No known active problems Resolved Problems Problem Noted Date Diagnosed Date Resolved Date Symptomatic cholelithiasis 04/10/2013 0 04/12/2013 Family History Medical History Relation Name Comments Heart Problems Father Anesthesia Complications Mother low bld pressure Other Mother gallbladder dis ease Relation Name Status Comments Father Mother Social History Tobacco Use Types Packs/Day Years Used Date Smoking Tobacco: Every Day Cigarettes 0.3 23 Smokeless Tobacco: Never Tobacco Cessation:Ready to Q uit: No; Counseling Given: Yes Alcohol Use Standard Drinks/Week Comments No 0 (1 standard drink = 0.6 oz pur e alcohol) Comments No Sex and Gender Information Value Date Recorded Sex Assigned at Not on file Legal Sex Female 11:24 AM EDT Gender Identity Not on file Sexual Orientation Not on file Last Filed Vital Signs Vital Sign Reading Time Taken Comments Blood Pressure 142/88 08/25/2014 3:36 PM EST Pulse 86 08/25/2014 3:36 PM EST Temperature 36.5 C (97.7 F) 08/25/2014 3:36 PM EST Respiratory Rate 16 09/19/2013 2:18 PM EST Oxygen Saturation 98% 08/25/2014 3:36 PM EST Inhaled Oxygen Concentration - - Weight 83 kg (183 lb) 08/25/2014 3:36 PM EST Height 165.1 cm (5' 5 ) 08/25/2014 3:36 PM EST Body Mass Index 30.45 08/25/2014 3:36 PM EST Plan of Treatment Health Maintenance Due Date Last Done Comments Cologuard 1970 Colonoscopy 1970 Colorectal Cancer Screening 1970 FIT 1970 Tobacco Cessation Counseling 1982 Tetanus Vaccination (Every 10 Years) 1988 Pneumococcal Vaccine: 50+ Ye ars (1 of 2 - PCV) 1989 Cervical Cancer Screening 1991 Lipid Monitoring 08/25/2015 08/25/2014, , 03/29/2013 Breast Cancer Screening 2020 03/28/2014 Zoster-RZV(Shingrix) (1 of 2) 2020 Depression Screening 07/17/2024 COVID-19 Vaccine (1 - 2024-2 6 season) 2025 Influenza Vaccination (#1) 2025 Lipid Screening Discontinued 08/25/2014, 12/16, 03/29/2013 Procedures Procedure Name Priority Date/Time Associated Diagnosis Comments LIPID PROFILE Routine 08/25/2014 9:23 PM EST Encounter for long-term (current) use of medications HTN (hypertension) GERD (gastroesophageal reflux disease) DDD (degenerative disc disease) DJD (degenerative joint disease) Neck pain Migraines [id number] SCREENING MAMMOGRAM Routine 03/28/2014 10:16 AM EDT from Last 3 Months or Most Recently Relevant to Health Maintenance Results * (ABNORMAL) LIPID PROFILE (08/25/2014 9:23 PM EST) Chol/HDL Ratio 5.8(H) 0 - 5 [facility]TERNAL [facility] Cholesterol 214(H) 125 - 199 mg/dL [facility] EXTERNAL [facility] Comment: TOTAL CHOLESTEROL INTERPRETATION: Less than 200 mg/dL Desireable 200-239 mg/dL Borderline Greater or Equal to 240 mg/dL High LDL Calculated 151(H) 0 - 100 mg/dL [facility] EXTERNAL [facility] Comment: LDL CHOLESTEROL INTERPRETATION: Less than 100 mg/dL Optimal 100-129 mg/dL Near optimal/above optimal 130-159 mg/dL Borderline High 160-189 mg/dL High Greater or Equal to 190 mg/dL Very High HDL 37(L) 40 - 180 mg/dL [facility] EXTERNAL LAB Comment: HDL CHOLESTEROL INTERPRETATION: Less than 40 mg/dL Low Greater than 60 mg/dL Desirable Triglycerides 130 0 - 150 mg/dL [facility] EX[facility] Comment: TOTAL TRIGLYCERIDE INTERPRETATION: Less than 150 mg/dL Normal 150-199 mg/dL Borderline HIgh 200-499 mg/dL High Greater or Equal to 500 mg/dL Very High Plasma 08/25/2014 9:23 PM EST 08/25/2014 9:23 PM EST Narrative [facility] - 08/25/2014 10:31 PM EST Has the patient fasted?->Yes us Miguel Joy MD CHEMISTRY ORDERABLES Final Res ult [facility] [address] * [id number] SCREENING MAMMOGRAM (03/28/2014 10:16 AM EDT) 03/28/2014 10:[address] [facility] - 03/31/2014 3:42 PM EDT Procedure:MM MAMMO DIGITAL SCREENING W CAD BILAT Reason for exam: screening (asymptomatic). MM MAMMO DIG SCREEN CAD BILAT Bilateral CC and MLO view(s) were taken. There are scattered fibroglandular densities. No suspicious calcifications. Compared with prior studies the most recent being 01-23-13 IMPRESSION: Negative ([id number]) RECOMMENDATION: Routine screening mammogram in 1 year. * The patient with a palpable abnormality, unexplained by breast imaging, should be managed on clinical basis by the attending physician. * Breast imaging has a false negative rate of 15%. * The patient was notified by mail of the results of this examination. *The patient's information was entered into a reminder system with a target due date for the next mammogram. The mammogram was reviewed by a Radiologist and CAD. Procedure Note 03/31/2014 Procedure:MM MAMMO DIGITAL SCREENING W CAD BILAT Reason for exam: screening (asymptomatic). MM MAMMO DIG SCREEN CAD BILAT Bilateral CC and MLO view(s) were taken. There are scattered fibroglandular densities. No suspicious calcifications. Compared with prior studies the most recent being 01-23-13 IMPRESSION: Negative ([id number]-[id number]) RECOMMENDATION: Routine screening mammogram in 1 year. * The patient with a palpable abnormality, unexplained by breast imaging, should be managed on clinical basis by the attending physician. * Breast imaging has a false negative rate of 15%. * The patient was notified by mail of the results of this examination. *The patient's information was entered into a reminder system with a target due date for the next mammogram. The mammogram was reviewed by a Radiologist and CAD. Miguel Joy MD [facility] IM RESULTS ONLY Final Result [facility] from Last 3 Months or Most Recently Relevant to Health Maintenance Insurance MEDICARE [place]ID [place] MED[place] Member Subscriber Plan / Payer (Ef fective for All Dates) Name:Ifeoma Patel Member ID:[id number] Relation to Subscriber:Self Name:Ifeoma Patel Subscriber ID:[id number] Payer ID:[id number] Group ID:Not on file Type:Medicare Address: [facility] [address] [facility] [place] [address] [place] [place] [address] [id number] Care Teams Pyridine Operator Relationship Specialty Start Date End Date None, None [address] [place] [address] PCP - General 11/13/14 Christy Rosario MD [address] [place] [address] General Surgery 07/24/22
[2025-07-03] MEDS: LACTATED RINGERS 1000ML 1,000 ML 999 ML IV (10:25)
--- NOTE | 2025-07-03 10:31 | ECG_ITS ---
APPROVED REPORT Exam: Resting ECG HR:113 bpm ECG Measurements Heart Rate 113 AXES [place] 161 P 66 QRSd 84 QRS 49 QT 328 T 81 QTc 395 Conclusion SINUS TACHYCARDIA LEFT VENTRICULAR HYPERTROPHY AND ST-T CHANGE [VOLTAGE CRITERIA PLUS ST/T ABNORMALITY] ABNORMAL ECG UNCONFIRMED REPORT Electronically signed by : BERNICE REYNOLDS, 07/05/2025 01:21:13
[2025-07-03 10:35] LABS: Hematocrit 40.4 % (37.0-47.0); Hemoglobin 13.7 g/dL (12.2-16.2); Immature Granulocytes % 0.4 %; Mean Corpuscular HGB Conc 33.9 g/dL (31.8-35.4); Mean Corpuscular Hemoglobin 30.0 pg (27.0-31.2); Mean Corpuscular Volume 88.4 fl (81-99); Nucleated Red Blood Cells % 0 %; Platelet Count 355 K/mm3 (142-424); Red Blood Count 4.57 M/mm3 (4.20-5.40); Red Cell Distribution Width-SD 39.1 fL; White Blood Count 9.3 K/mm3 (4.8-10.8)
[2025-07-03] MEDS: AMLODIPINE 5MG TABLET 10 MG PO (10:35)
[2025-07-03] MEDS: OXYCODONE 5MG IMMEDIATE RELEASE TABLET 5 MG PO (10:35)
--- NOTE | 2025-07-03 10:35 | PC.NURSE ---
called to get records from recent visit.
[2025-07-03 10:55] LABS: Alanine Aminotransferase 15 U/L (12-78); Albumin Level 5.2 g/dl (3.5-5.0); Albumin/Globulin Ratio 1.4 (1.1-1.8); Alkaline Phosphatase 108 U/L (38-126); Anion Gap 14.5 mEq/L (5-15); Aspartate Amino Transferase 27 U/L (14-36); Bilirubin,Total 0.7 mg/dl (0.2-1.3); Blood Urea Nitrogen 10 mg/dl (7-17); Calcium 9.8 mg/dl (8.4-10.2); Carbon Dioxide 24 mmol/L (22.0-30.0); Chloride 103 mmol/L (98-107); Creatinine Clearance Estimated 94 mL/min (50-200); Creatinine,Serum 0.80 mg/dl (0.52-1.04); Estimated Glomerular Filt Rate 74 ml/min (>60); GFR (African American) 90 ML/MIN (>60); Globulin 3.6 g/dL (1.3-3.2); Glucose 124 mg/dl (74-100); Potassium 3.5 mmoL/L (3.5-5.1); Sodium 138 mmol/L (136-145); Total Protein,Serum 8.8 g/dl (6.3-8.2)
[2025-07-03] MEDS: IOPAMIDOL-370 (76%);100ML BOTTLE 75 ML IV (11:07)
[2025-07-03] MEDS: SODIUM CHLORIDE 0.9% 10ML SYR (RAD ONLY) 10 ML IV (11:07)
[2025-07-03 11:10] LABS: Troponin I < 0.01 ng/ml (0.00-0.034)
[2025-07-03] MEDS: METOPROLOL TARTRATE 5MG/5ML VIAL 5 MG IV (11:25)
[2025-07-03] MEDS: HYDROMORPHONE 2MG/ML SYRINGE 0.5 MG IV ×2 (11:26→12:54)
[2025-07-03 12:16] LABS: Coronavirus 19, PCR Not Detected (NotDetected); Influenza A, PCR Not Detected (NotDetected); Influenza B, PCR Not Detected (NotDetected)
== END 2025-07-03 13:25 | disposition home or self-care (01) ==
PROVIDERS: Emergency Provider Student in an Organized Health Care Education/Training Program; PCP Family Medicine
DX: J01.00 Acute maxillary sinusitis, unspecified (principal); I10 Essential (primary) hypertension; R00.0 Tachycardia, unspecified; H73.92 Unspecified disorder of tympanic membrane, left ear; H92.02 Otalgia, left ear; R68.84 Jaw pain; R22.0 Localized swelling, mass and lump, head; F17.210 Nicotine dependence, cigarettes, uncomplicated; Z86.79 Personal history of other diseases of the circulatory system; Z79.01 Long term (current) use of anticoagulants
CPT/HCPCS: 70450; 70487; 70491; 80053; 84484; 85025; 87040; 87636; 93005; 96361; 96374; 96375; 96376; 99285; J1171; J7120; Q9967